=== PATIENT | male | born 1975 | race Caucasian/White ===

== ENCOUNTER 2019-05-16 17:28 | Emergency (ER) | payer MEDICAID ==
[~2019-05-16 17:28] MED LIST: CLON-529 PO; CYCL-1 PO; DOCU-28 PO; IBUP-812 PO; LISI-600 PO; MORP-92; NOR5T PO; VENL150T3 PO
== END 2019-05-16 18:17 | disposition left against medical advice (07) ==
LOC: ER 17:29
DX: M25.559 Pain in unspecified hip (principal); Z53.21 Procedure and treatment not carried out due to patient leaving prior to being seen by health care provider

== ENCOUNTER 2019-05-25 17:19 | Emergency (ER) | payer MEDICAID ==
[~2019-05-25] VITALS: Ht 185.4 cm; Wt 92.7 kg
[2019-05-25 18:50] LABS: BASOPHILS # (AUTO) 0.1 X10'3 (0-0.2); EOSINOPHILS # (AUTO) 0.1 X10'3 (0-0.9); EOSINOPHILS % (AUTO) 1.5 % (0-6); HEMOGLOBIN 16.6 g/dl (14.0-17.9); LYMPHOCYTES # (AUTO) 2.8 X10'3 (1.1-4.8); LYMPHOCYTES % (AUTO) 28.7 % (21-51); MEAN CORPUSCULAR HEMOGLOBIN 30.5 PG (27.0-31.0); MEAN CORPUSCULAR HGB CONC 34.5 g/dL (33.0-36.5); MEAN CORPUSCULAR VOLUME 88.5 FL (78-98); MEAN PLATELET VOLUME 7.3 FL (7.4-10.4); MONOCYTES # (AUTO) 0.8 X10'3 (0-0.9); MONOCYTES % (AUTO) 7.9 % (2-12); NEUTROPHILS # (AUTO) 5.9 X10'3 (1.8-7.7); NEUTROPHILS % (AUTO) 60.9 % (42-75); PLATELET COUNT 269 X10'3 (140-440); RED BLOOD COUNT 5.42 X10'6 (4.70-6.10); WHITE BLOOD COUNT 9.7 X10'3 (4.5-11.0)
[2019-05-25 19:06] LABS: ALANINE AMINOTRANSFERASE 50 U/L (12-78); ALBUMIN 4.2 G/DL (3.4-5.0); ALBUMIN/GLOBULIN RATIO 1.1 (1.1-1.5); ALKALINE PHOSPHATASE 78 IU/L (46-116); ANION GAP 10 (8-16); ASPARTATE AMINO TRANSFERASE 53 U/L (10-37); BILIRUBIN,TOTAL 0.5 MG/DL (0.1-1.0); BLOOD UREA NITROGEN 13 MG/DL (7-18); BUN/CREATININE RATIO 13.1 (5.4-32.0); CHLORIDE 108 MMOL/L (99-107); CREATININE 0.99 MG/DL (0.60-1.10); GLUCOSE 84 MG/DL (70-104); POTASSIUM 4.5 MMOL/L (3.5-5.1); SODIUM 145 MMOL/L (135-145); TOTAL CARBON DIOXIDE 26.7 MMOL/L (24-32); TOTAL PROTEIN 8.1 G/DL (6.4-8.2); eGFR 82 ML/MIN
[2019-05-25 19:16] LABS: ETHANOL 0.185 GM/DL (0.0-0.010)
[2019-05-25 20:10] LABS: URINE AMPHETAMINE SCREEN NEGATIVE (Neg); URINE BARBITUATE SCREEN NEGATIVE (Neg); URINE BENZODIAZEPINES SCREEN NEGATIVE (Neg); URINE CANNABINOID SCREEN POSITIVE (Neg); URINE COCAINE SCREEN NEGATIVE (Neg); URINE METHADONE SCREEN NEGATIVE (Neg); URINE OPIATE SCREEN NEGATIVE (Neg); URINE PHENCYCLIDINE SCREEN NEGATIVE (Neg)
[2019-05-25] MEDS ORDERED: mag hydrox/Alum hydrox/simeth 30ml oral suspension PO ONE (20:55)
[2019-05-25] MEDS ORDERED: ketorolac tromethamine 15mg/ml inj. IM ONE (20:55)
--- NOTE | 2019-05-25 21:05 | NUR ---
pt stated he had pain and had heartburn, PA informed and meds were ordered and given. Covered the patient with 2 warmed blankets and closed the doors, hopefully he can sleep.
--- NOTE | 2019-05-25 22:41 | NUR ---
pt states he is still having pain and despite really trying to sleep he is just not able. Will notify PA
[2019-05-25] MEDS ORDERED: diphenhydrAMINE 25mg capsule PO ONE (23:00)
[2019-05-25] MEDS ORDERED: LORazepam 1 MG tablet PO ONE (23:00)
--- NOTE | 2019-05-26 00:01 | NUR ---
pt transfered from 16 from the ED.
[2019-05-26] MEDS ORDERED: LISI40TA4 (00:11)
[2019-05-26] MEDS ORDERED: FENO134C PO (00:11)
[2019-05-26] MEDS ORDERED: HYDR25TA4 PO (00:11)
[2019-05-26] MEDS ORDERED: SIMV-42 PO (00:11)
[2019-05-26] MEDS ORDERED: FLUT16SP26 (00:11)
[2019-05-26] MEDS ORDERED: AMLO10TA13 PO (00:11)
[2019-05-26] MEDS ORDERED: HYDR-3972 PO (00:11)
[2019-05-26] MEDS ORDERED: MONT10TA26 PO (00:11)
[2019-05-26] MEDS ORDERED: PREG75CA75 PO (00:11)
[2019-05-26] MEDS ORDERED: BUSP5TAB3 PO (00:11)
[2019-05-26] MEDS ORDERED: DOXA2TAB2 PO (00:11)
[2019-05-26] MEDS ORDERED: ibuprofen tablet 400 MG TABLET PO ONE (04:50)
[2019-05-26] MEDS ORDERED: acetaminophen 325mg tablet PO PRN (11:55)
[2019-05-26] MEDS ORDERED: ibuprofen tablet 400 MG TABLET PO PRN (11:55)
[2019-05-26] MEDS ORDERED: HYDROcodone/acetaminophen 10/325mg tab PO PRN (12:25)
--- NOTE | 2019-05-26 12:45 | NUR ---
Katarina [facility] staff member is speaking with the patient to determine disposition.
--- NOTE | 2019-05-26 13:23 | NUR ---
Pt's spouse and Katarina [facility] staff are at the bedside at this time discussing the situation and plan of care.
--- NOTE | 2019-05-26 13:42 | NUR ---
Pt's vitals checked prior to discharge, BP is elevated but not critical level. Pt is due to take his home routine medications upon arrival at home today. Dr. Slade is aware of the BP reading and gave the OK for the patient to go home and take his medications as scheduled and follow up with [facility] as scheduled.
[2019-05-26 13:53] VITALS: BP 173/89
[2019-05-26] MEDS ORDERED: pregabalin 75mg capsule PO SCH (20:00)
[2019-05-26] MEDS ORDERED: busPIRone 5mg tablet PO SCH (20:00)
[2019-05-26] MEDS ORDERED: ibuprofen tablet 400 MG TABLET PO SCH (20:00)
[2019-05-27] MEDS ORDERED: HYDROchlorothiazide 25mg tablet PO SCH (08:00)
[2019-05-27] MEDS ORDERED: montelukast 10mg tablet PO SCH (08:00)
[2019-05-27] MEDS ORDERED: venlafaxine XR 75mg capsule (Q24H) PO SCH (08:00)
[2019-05-27] MEDS ORDERED: doxazosin mesylate 2mg tablet PO SCH (08:00)
[2019-05-27] MEDS ORDERED: lisinopril 20mg tablet PO SCH (08:00)
[2019-05-27] MEDS ORDERED: amLODIPine 5mg tablet PO SCH (08:00)
[2019-05-27] MEDS ORDERED: fenofibrate 145mg tablet PO SCH (08:00)
[2019-05-27] MEDS ORDERED: fluticasone nasal spray 16GM bottle NS SCH (08:00)
[2019-05-27] MEDS ORDERED: atorvastatin 10mg tablet PO SCH (08:00)
== END 2019-05-26 13:55 | disposition home or self-care (01) ==
LOC: ER 17:20
DX: G47.00 Insomnia, unspecified (principal); R44.3 Hallucinations, unspecified; M54.5 Low back pain; M25.552 Pain in left hip; I10 Essential (primary) hypertension; G89.29 Other chronic pain; F12.90 Cannabis use, unspecified, uncomplicated; Z98.890 Other specified postprocedural states; Z56.0 Unemployment, unspecified; Z79.899 Other long term (current) drug therapy
CPT/HCPCS: 36415; 73502; 80053; 80305; 80320; 84443; 85025; 96372; 99285; J1885; Q0163

== ENCOUNTER 2020-05-03 17:09 | Emergency (ER) | payer MEDICAID ==
[~2020-05-03 17:09] MED LIST changes: +AMLO10TA13 PO; +BUSP5TAB3 PO; -CLON-529 PO; -CYCL-1 PO; -DOCU-28 PO; +DOXA2TAB2 PO; +FENO134C PO; +FLUT16SP26; +HYDR-3972 PO; +HYDR25TA4 PO; -LISI-600 PO; +LISI40TA4; +MONT10TA97 PO; -MORP-92; -NOR5T PO; +PREG75CA75 PO; +SIMV-42 PO
== END 2020-05-03 17:48 | disposition left against medical advice (07) ==
LOC: ER 17:09
DX: Z53.21 Procedure and treatment not carried out due to patient leaving prior to being seen by health care provider (principal)

== ENCOUNTER 2020-08-22 19:05 | Emergency (ER) | payer MEDICAID ==
[~2020-08-22] VITALS: Ht 185.4 cm; Wt 90.0 kg
[~2020-08-22 19:05] MED LIST changes: +LISI40TA13; -LISI40TA4; +MONT10TA32 PO; -MONT10TA97 PO
[2020-08-22 19:56] LABS: BASOPHILS # (AUTO) 0.1 X10'3 (0-0.2); BASOPHILS % (AUTO) 1.1 % (0-1); EOSINOPHILS # (AUTO) 0.2 X10'3 (0-0.9); EOSINOPHILS % (AUTO) 2.2 % (0-6); HEMATOCRIT 46.9 % (42.0-52.0); LYMPHOCYTES # (AUTO) 2.5 X10'3 (1.1-4.8); LYMPHOCYTES % (AUTO) 25.5 % (21-51); MEAN CORPUSCULAR HEMOGLOBIN 31.5 PG (27.0-31.0); MEAN CORPUSCULAR HGB CONC 34.2 g/dL (33.0-36.5); MEAN CORPUSCULAR VOLUME 91.9 FL (78-98); MONOCYTES # (AUTO) 0.9 X10'3 (0-0.9); MONOCYTES % (AUTO) 8.9 % (2-12); NEUTROPHILS # (AUTO) 6.2 X10'3 (1.8-7.7); NEUTROPHILS % (AUTO) 62.3 % (42-75); PLATELET COUNT 324 X10'3 (140-440); RED CELL DISTRIBUTION WIDTH 13.4 % (11.5-14.5)
[2020-08-22 20:08] LABS: ALANINE AMINOTRANSFERASE 52 U/L (12-78); ALBUMIN 4.1 G/DL (3.4-5.0); ALBUMIN/GLOBULIN RATIO 0.9 (1.1-1.5); ALKALINE PHOSPHATASE 92 IU/L (46-116); ANION GAP 16 (8-16); ASPARTATE AMINO TRANSFERASE 34 U/L (10-37); BILIRUBIN,TOTAL 0.4 MG/DL (0.1-1.0); BLOOD UREA NITROGEN 13 MG/DL (7-18); CALCIUM 8.7 MG/DL (8.5-10.1); CHLORIDE 107 MMOL/L (99-107); CREATININE 1.08 MG/DL (0.60-1.10); ETHANOL 0.263 GM/DL (0.0-0.010); GLUCOSE 93 MG/DL (70-104); POTASSIUM 3.9 MMOL/L (3.5-5.1); SODIUM 143 MMOL/L (135-145); TOTAL PROTEIN 8.7 G/DL (6.4-8.2); eGFR 74 ML/MIN
--- NOTE | 2020-08-22 20:30 | NUR ---
Patient now wearing green scrubs, resting in stretcher laying on hisside, even and unlabored respirations. No needs voiced at this time.
[2020-08-22 21:07] LABS: URINE AMPHETAMINE SCREEN NEGATIVE (Neg); URINE BARBITUATE SCREEN NEGATIVE (Neg); URINE BENZODIAZEPINES SCREEN NEGATIVE (Neg); URINE CANNABINOID SCREEN POSITIVE (Neg); URINE COCAINE SCREEN NEGATIVE (Neg); URINE METHADONE SCREEN NEGATIVE (Neg); URINE OPIATE SCREEN NEGATIVE (Neg); URINE PHENCYCLIDINE SCREEN NEGATIVE (Neg)
--- NOTE | 2020-08-22 21:30 | NUR ---
Patient resting in stretcher, has been able to readjust position independently. Patient has been calm and cooperative.
--- NOTE | 2020-08-22 22:30 | NUR ---
Patient laying on his side, even and unnlabored respirations. No needs voiced at this time.
--- NOTE | 2020-08-22 23:30 | NUR ---
Waiting on psych evaluation for patient. He has continued to rest, calm and cooperative. No further needs at this time.
[2020-08-23] MEDS ORDERED: ibuprofen tablet 400 MG TABLET PO ONE (01:00)
[2020-08-23] MEDS ORDERED: diphenhydrAMINE 25mg capsule PO ONE (01:20)
[2020-08-23] MEDS ORDERED: LORazepam 1 MG tablet PO ONE (01:20)
--- NOTE | 2020-08-23 07:17 | NUR ---
pt sleeping quietly. no acute distress noted at this time.
--- NOTE | 2020-08-23 07:29 | NUR ---
PACKET SENT TO [facility]
[2020-08-23 07:36] LABS: CLARITY,URINE CLEAR (Clear); COLOR,URINE YELLOW (Yellow); GLUCOSE, URINE NEGATIVE (Neg); KETONES,URINE NEGATIVE (Neg); LEUKOCYTE ESTERASE ,URINE NEGATIVE (Neg); NITRITES, URINE NEGATIVE (Neg); OCCULT BLOOD,URINE TRACE-INTACT (Neg); PROTEIN,URINE NEGATIVE (Neg); UROBILINOGEN,URINE 0.2 E.U/dL (0.2-1.0)
[2020-08-23 07:43] LABS: UA COLLECTION TYPE VOIDED
[2020-08-23 07:44] LABS: BACTERIA,URINE NONE SEEN /HPF (Neg); MUCUS STRANDS FEW /LPF (Neg); RBC,URINE 0-2 /HPF (0-2); SQUAMOUS EPITHELIAL CELL,UR NONE SEEN /LPF (FEW); WBC,URINE NONE SEEN /HPF (0-4)
--- NOTE | 2020-08-23 09:15 | NUR ---
spoke with irasema from mental health. will be putting pt on a 5150.
--- NOTE | 2020-08-23 10:00 | NUR ---
PT CALM, COOPERATIVE WITH CARE.
--- NOTE | 2020-08-23 10:30 | NUR ---
pt c/o right side sciatic pain. informed dr. feng. please see new orders.
[2020-08-23] MEDS ORDERED: dexamethasone 4mg tablet PO ONE (10:35)
[2020-08-23] MEDS ORDERED: ketorolac tromethamine 15mg/ml inj. IM ONE (10:35)
[2020-08-23] MEDS ORDERED: cyclobenzaprine 10mg tablet PO ONE (10:35)
--- NOTE | 2020-08-23 10:45 | NUR ---
reports been given, to estelle sweeney. pt went to room 23
--- NOTE | 2020-08-23 11:12 | NUR ---
Pt report received from Marisabel DAY. Pt ambulated over in stable condition with belongings and paperwork.
[2020-08-23] MEDS ORDERED: amLODIPine 5mg tablet PO ONE (17:35)
--- NOTE | 2020-08-23 19:39 | NUR ---
Assumed patient care. Patient exhibits mild anxiety. He is cooperative.
[2020-08-23] MEDS ORDERED: LORazepam 0.5 MG tablet PO PRN (19:45)
[2020-08-23] MEDS ORDERED: ibuprofen tablet 400 MG TABLET PO PRN (19:55)
--- NOTE | 2020-08-23 20:00 | NUR ---
Patients family called, patients mother (was termally ill,) has . Patient cries, he then tells this financial underwriter it was expected. PRN ativan will be requested.
[2020-08-23] MEDS ORDERED: quetiapine 100mg tablet PO SCH (21:00)
--- NOTE | 2020-08-23 21:13 | NUR ---
Breaking primary RN. Patient walking calmly around his bed, rearranging pillows and linen. No sign of distress or agitation at this time.
--- NOTE | 2020-08-23 21:49 | NUR ---
Plan to admit to Behavioral Health tonight. Patient is being interviewed by BARB Cox.
--- NOTE | 2020-08-23 21:50 | NUR ---
Motrin was given for generalized pain.
--- NOTE | 2020-08-23 23:30 | NUR ---
Yessicat discharged and transfered to adult mental health.
[2020-08-24 00:38] VITALS: BP 172/88
== END 2020-08-24 00:43 ==
LOC: ER 19:06
DX: R45.1 Restlessness and agitation (principal); R45.850 Homicidal ideations; I10 Essential (primary) hypertension; G89.29 Other chronic pain; M54.9 Dorsalgia, unspecified; Z56.0 Unemployment, unspecified; Z20.822 Contact with and (suspected) exposure to COVID-19
CPT/HCPCS: 36415; 80053; 80305; 80320; 81001; 85025; 87081; 87635; 96372; 99285; C9803; J1885; Q0163

== ENCOUNTER 2023-05-04 07:28 | Emergency (ER) | payer MEDICAID ==
[~2023-05-04] VITALS: Ht 185.4 cm; Wt 85.9 kg
[~2023-05-04 07:28] MED LIST changes: -AMLO10TA13 PO; -BUSP5TAB3 PO; -DOXA2TAB2 PO; -FENO134C PO; -FLUT16SP26; -HYDR-3972 PO; -HYDR25TA4 PO; -LISI40TA13; -MONT10TA32 PO; +NICO-668 BC; -PREG75CA75 PO; +QUET100T34 PO; -SIMV-42 PO; +TIZA-189 PO; +TRAZ-251 PO; -VENL150T3 PO
[2023-05-04 08:09] LABS: BASOPHILS # (AUTO) 0.1 X10'3 (0-0.2); BASOPHILS % (AUTO) 1.3 % (0-1); EOSINOPHILS # (AUTO) 0.2 X10'3 (0-0.9); EOSINOPHILS % (AUTO) 2.2 % (0-6); HEMATOCRIT 43.9 % (42.0-52.0); HEMOGLOBIN 14.7 g/dl (14.0-17.9); LYMPHOCYTES # (AUTO) 1.6 X10'3 (1.1-4.8); LYMPHOCYTES % (AUTO) 18.6 % (21-51); MEAN CORPUSCULAR HEMOGLOBIN 30.8 PG (27.0-31.0); MEAN CORPUSCULAR HGB CONC 33.6 g/dL (33.0-36.5); MEAN CORPUSCULAR VOLUME 91.9 FL (78-98); MEAN PLATELET VOLUME 6.4 FL (7.4-10.4); MONOCYTES # (AUTO) 1.1 X10'3 (0-0.9); MONOCYTES % (AUTO) 13.7 % (2-12); NEUTROPHILS # (AUTO) 5.4 X10'3 (1.8-7.7); NEUTROPHILS % (AUTO) 64.2 % (42-75); PLATELET COUNT 271 X10'3 (140-440); RED BLOOD COUNT 4.78 X10'6 (4.70-6.10); RED CELL DISTRIBUTION WIDTH 14.3 % (11.5-14.5); WHITE BLOOD COUNT 8.4 X10'3 (4.5-11.0)
[2023-05-04 08:30] LABS: ALBUMIN 4.1 G/DL (3.4-5.0); ANION GAP 13 (8-16); BLOOD UREA NITROGEN 12 MG/DL (7-18); BUN/CREATININE RATIO 10.8 (10.0-20.0); CALCIUM 9.1 MG/DL (8.5-10.1); CHLORIDE 107 MMOL/L (99-107); CREATININE 1.11 MG/DL (0.60-1.10); ETHANOL 64 MG/DL (<10); GLUCOSE 116 MG/DL (70-104); SODIUM 144 MMOL/L (135-145); THYROID STIMULATING HORMONE 1.24 ulU/ml (0.34-4.50); TOTAL CARBON DIOXIDE 24.3 MMOL/L (24-32); eCRCL 92 ML/MIN; eGFR 71 ML/MIN
[2023-05-04] MEDS ORDERED: LISI5TAB22 PO (08:30)
[2023-05-04] MEDS ORDERED: DIAZ10TA5 PO (08:30)
[2023-05-04 08:35] LABS: POTASSIUM 4.2 MMOL/L (3.5-5.1)
[2023-05-04] MEDS ORDERED: SPIR25TA5 PO (08:35)
[2023-05-04] MEDS ORDERED: FURO40TA4 PO (08:35)
[2023-05-04] MEDS ORDERED: METO-395 PO (08:35)
[2023-05-04] MEDS ORDERED: DAPA5TAB PO (08:35)
[2023-05-04] MEDS ORDERED: PREG75CA76 (08:35)
[2023-05-04] MEDS ORDERED: QUET-1 PO (08:37)
[2023-05-04] MEDS ORDERED: NICO-668 SL (08:37)
[2023-05-04 09:00] VITALS: BP 149/88; PULSE 84; RESP 14; TEMP 98.9; O2SAT 99
[2023-05-04 09:50] LABS: BILIRUBIN,URINE NEGATIVE (Neg); CLARITY,URINE CLEAR (Clear); COLOR,URINE YELLOW (Yellow); GLUCOSE, URINE NEGATIVE (Neg); KETONES,URINE 15 mg/dl (Neg); LEUKOCYTE ESTERASE ,URINE NEGATIVE (Neg); NITRITES, URINE NEGATIVE (Neg); OCCULT BLOOD,URINE NEGATIVE (Neg); PROTEIN,URINE NEGATIVE (Neg); UROBILINOGEN,URINE 0.2 E.U/dL (0.2-1.0)
[2023-05-04 09:56] LABS: UA COLLECTION TYPE NON-SPECIFIED
[2023-05-04 09:58] LABS: URINE AMPHETAMINE SCREEN NEGATIVE (Neg); URINE BARBITUATE SCREEN NEGATIVE (Neg); URINE BENZODIAZEPINES SCREEN POSITIVE (Neg); URINE CANNABINOID SCREEN POSITIVE (Neg); URINE COCAINE SCREEN NEGATIVE (Neg); URINE METHADONE SCREEN NEGATIVE (Neg); URINE OPIATE SCREEN NEGATIVE (Neg); URINE PHENCYCLIDINE SCREEN NEGATIVE (Neg)
== END 2023-05-04 13:20 | disposition home or self-care (01) ==
LOC: ER 07:29
DX: F29 Unspecified psychosis not due to a substance or known physiological condition (principal); Z20.822 Contact with and (suspected) exposure to COVID-19; I10 Essential (primary) hypertension; F12.90 Cannabis use, unspecified, uncomplicated; Z91.018 Allergy to other foods; Z79.899 Other long term (current) drug therapy
CPT/HCPCS: 36415; 80048; 80305; 80320; 81003; 84443; 85025; 87811; 99284; 99285

== ENCOUNTER 2023-06-06 06:41 | Emergency (ER) | payer MEDICAID ==
[~2023-06-06] VITALS: Ht 185.4 cm; Wt 85.0 kg
[~2023-06-06 06:41] MED LIST changes: +DAPA5TAB PO; +DIAZ10TA5 PO; +FURO40TA4 PO; -IBUP-812 PO; +LISI5TAB22 PO; +METO-395 PO; -NICO-668 BC; -QUET100T34 PO; +SPIR25TA5 PO; -TIZA-189 PO; -TRAZ-251 PO
[2023-06-06 06:56] VITALS: BP 152/84; PULSE 92; RESP 16; TEMP 98.1; O2SAT 99
[2023-06-06 07:25] LABS: BASOPHILS # (AUTO) 0.1 X10'3 (0-0.2); BASOPHILS % (AUTO) 1.5 % (0-1); EOSINOPHILS # (AUTO) 0.5 X10'3 (0-0.9); EOSINOPHILS % (AUTO) 5.1 % (0-6); HEMATOCRIT 47.8 % (42.0-52.0); HEMOGLOBIN 16.5 g/dl (14.0-17.9); LYMPHOCYTES # (AUTO) 1.8 X10'3 (1.1-4.8); MEAN CORPUSCULAR HEMOGLOBIN 31.6 PG (27.0-31.0); MEAN CORPUSCULAR HGB CONC 34.5 g/dL (33.0-36.5); MEAN CORPUSCULAR VOLUME 91.6 FL (78-98); MEAN PLATELET VOLUME 7.3 FL (7.4-10.4); MONOCYTES # (AUTO) 0.9 X10'3 (0-0.9); MONOCYTES % (AUTO) 9.8 % (2-12); NEUTROPHILS # (AUTO) 5.9 X10'3 (1.8-7.7); NEUTROPHILS % (AUTO) 63.6 % (42-75); PLATELET COUNT 251 X10'3 (140-440); RED BLOOD COUNT 5.22 X10'6 (4.70-6.10); RED CELL DISTRIBUTION WIDTH 13.5 % (11.5-14.5); WHITE BLOOD COUNT 9.2 X10'3 (4.5-11.0)
[2023-06-06 07:45] LABS: ALBUMIN 4.2 G/DL (3.4-5.0); ANION GAP 18 (8-16); BLOOD UREA NITROGEN 19 MG/DL (7-18); BUN/CREATININE RATIO 13.4 (10.0-20.0); CALCIUM 9.1 MG/DL (8.5-10.1); CHLORIDE 101 MMOL/L (99-107); CREATININE 1.42 MG/DL (0.60-1.10); GLUCOSE 93 MG/DL (70-104); POTASSIUM 3.4 MMOL/L (3.5-5.1); PRO BRAIN NATRIURETIC PEPTIDE 247 PG/ML (0-125); SODIUM 141 MMOL/L (135-145); TOTAL CARBON DIOXIDE 22.1 MMOL/L (24-32); eCRCL 72 ML/MIN; eGFR 53 ML/MIN
== END 2023-06-06 10:15 | disposition left against medical advice (07) ==
LOC: ER 06:42
DX: R06.02 Shortness of breath (principal); R42 Dizziness and giddiness; Z53.21 Procedure and treatment not carried out due to patient leaving prior to being seen by health care provider
CPT/HCPCS: 36415; 71045; 80048; 83880; 84484; 85025; 93005; 99281

== ENCOUNTER 2023-12-05 21:29 | Emergency (ER) | payer MEDICAID ==
[~2023-12-05] VITALS: Ht 185.4 cm; Wt 86.4 kg
[~2023-12-05 21:29] MED LIST changes: +BACI28.42 TOP; +DIME118C3 TP
[2023-12-05 21:31] VITALS: BP 119/65; PULSE 92; RESP 17; TEMP 98.5; O2SAT 97
== END 2023-12-05 22:19 | disposition home or self-care (01) ==
LOC: ER 21:30
DX: S90.812A Abrasion, left foot, initial encounter (principal); S90.811A Abrasion, right foot, initial encounter; F10.129 Alcohol abuse with intoxication, unspecified; I10 Essential (primary) hypertension; F12.90 Cannabis use, unspecified, uncomplicated; Z88.8 Allergy status to other drugs, medicaments and biological substances; Z79.2 Long term (current) use of antibiotics; Z79.899 Other long term (current) drug therapy; W19.XXXA Unspecified fall, initial encounter; Y93.89 Activity, other specified; Y92.89 Other specified places as the place of occurrence of the external cause; Y99.8 Other external cause status; Y90.9 Presence of alcohol in blood, level not specified
CPT/HCPCS: 99281

== ENCOUNTER 2023-12-06 02:17 | Emergency (ER) | payer MEDICAID ==
[~2023-12-06] VITALS: Ht 185.4 cm; Wt 86.4 kg
[2023-12-06 06:14] LABS: BASOPHILS # (AUTO) 0.1 X10'3 (0-0.2); BASOPHILS % (AUTO) 1.1 % (0-1); EOSINOPHILS # (AUTO) 0.2 X10'3 (0-0.9); EOSINOPHILS % (AUTO) 2.2 % (0-6); HEMATOCRIT 41.1 % (42.0-52.0); HEMOGLOBIN 13.9 g/dl (14.0-17.9); LYMPHOCYTES # (AUTO) 1.3 X10'3 (1.1-4.8); LYMPHOCYTES % (AUTO) 14.9 % (21-51); MEAN CORPUSCULAR HEMOGLOBIN 31.2 PG (27.0-31.0); MEAN CORPUSCULAR HGB CONC 33.8 g/dL (33.0-36.5); MEAN CORPUSCULAR VOLUME 92.2 FL (78-98); MEAN PLATELET VOLUME 7.6 FL (7.4-10.4); MONOCYTES # (AUTO) 1.3 X10'3 (0-0.9); MONOCYTES % (AUTO) 14.5 % (2-12); NEUTROPHILS % (AUTO) 67.3 % (42-75); PLATELET COUNT 185 X10'3 (140-440); RED BLOOD COUNT 4.45 X10'6 (4.70-6.10); WHITE BLOOD COUNT 8.8 X10'3 (4.5-11.0)
[2023-12-06 06:21] LABS: ALBUMIN 3.7 G/DL (3.4-5.0); ANION GAP 12 (8-16); BLOOD UREA NITROGEN 18 MG/DL (7-18); BUN/CREATININE RATIO 16.2 (10.0-20.0); CALCIUM 8.8 MG/DL (8.5-10.1); CHLORIDE 107 MMOL/L (99-107); CREATININE 1.11 MG/DL (0.60-1.10); ETHANOL 22 MG/DL (<10); GLUCOSE 64 MG/DL (70-104); POTASSIUM 3.6 MMOL/L (3.5-5.1); SODIUM 141 MMOL/L (135-145); TOTAL CARBON DIOXIDE 21.9 MMOL/L (24-32); eCRCL 91 ML/MIN; eGFR 70 ML/MIN
[2023-12-06 06:24] LABS: APTT 26 SECONDS (22-32); PROTHROMBIN TIME 10.4 SECONDS (9.0-12.0)
[2023-12-06 07:15] LABS: BILIRUBIN,URINE NEGATIVE (Neg); CLARITY,URINE CLEAR (Clear); COLOR,URINE YELLOW (Yellow); GLUCOSE, URINE 100 mg/dl (Neg); KETONES,URINE NEGATIVE (Neg); LEUKOCYTE ESTERASE ,URINE NEGATIVE (Neg); NITRITES, URINE NEGATIVE (Neg); OCCULT BLOOD,URINE NEGATIVE (Neg); PROTEIN,URINE NEGATIVE (Neg); UROBILINOGEN,URINE 0.2 E.U/dL (0.2-1.0)
[2023-12-06 07:21] LABS: UA COLLECTION TYPE VOIDED
[2023-12-06 11:58] VITALS: BP 114/78; PULSE 85; RESP 16; TEMP 97.9; O2SAT 96
== END 2023-12-06 12:00 | disposition home or self-care (01) ==
LOC: ER 02:18
DX: F10.20 Alcohol dependence, uncomplicated (principal); M79.671 Pain in right foot; M79.672 Pain in left foot; I10 Essential (primary) hypertension; G89.29 Other chronic pain; M54.9 Dorsalgia, unspecified; F12.90 Cannabis use, unspecified, uncomplicated; R29.6 Repeated falls; Z88.8 Allergy status to other drugs, medicaments and biological substances; Z79.899 Other long term (current) drug therapy; Z56.0 Unemployment, unspecified; Z72.89 Other problems related to lifestyle; W19.XXXA Unspecified fall, initial encounter
CPT/HCPCS: 36415; 70450; 80048; 80320; 81003; 85025; 85610; 85730; 93005; 99285

== ENCOUNTER 2024-10-26 21:29 | Emergency (ER) | payer MEDICAID ==
[~2024-10-26] VITALS: Ht 185.4 cm; Wt 102.3 kg
[2024-10-26 21:53] VITALS: TEMP 98
--- NOTE | 2024-10-26 21:58 | ELECTROCARDIOGRAPH REPORT ---
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 Reading MD: Measurements Intervals [place] Rate: 109 P: 75 OR: 151 QRS: -20 QRSD: 108 T: 30 QT: 360 QTc: 485 Interpretive Statements Sinus tachycardia Probable left atrial enlargement RSR' in V1 or V2, probably normal variant Inferior infarct, old Probable anterolateral infarct, old Please click the below link to view image of tracing.
[2024-10-26 22:10] LABS: MEAN PLATELET VOLUME 7.7 FL (7.4-10.4); RED CELL DISTRIBUTION WIDTH 15.0 % (11.5-14.5)
[2024-10-26 22:28] LABS: CREATININE 1.77 MG/DL (0.60-1.10); PRO BRAIN NATRIURETIC PEPTIDE 10669 PG/ML (0-125); TOTAL CARBON DIOXIDE 24.4 MMOL/L (24-32); eGFR 41 ML/MIN
--- NOTE | 2024-10-26 22:35 | RADIOLOGY REPORT ---
CHEST RADIOGRAPH Indication: CP Technique: Single frontal view of the chest was obtained COMPARISON: DI CHEST,SINGLE VIEW on DOS: 06/06/23 FINDINGS: Lines and Tubes: None Lungs: Moderate diffuse increased prominence of the pulmonary vasculature. No evidence of focal cons olidation. Pleura: No effusion. No pneumothorax. Cardiomediastinal contours: Cardiomegaly. Bones: Unremarkable IMPRESSION: 1. Cardiomegaly and moderate diffuse increased prominence of the pulmonary vasculature.
--- NOTE | 2024-10-26 23:40 | Physician Documentation ---
History of Present Illness ~ Chief Complaint: Shortness of Breath Stated Complaint: RETAINING WATER, SOB Time Seen by MD: 23:18 Primary Medical Doctor: YASMEEN Source: patient Mode of Arrival: POV Exam Limitations: no limitations HPI Chief Complaint: Shortness a breath, leg swelling Caveat: None Independent Historians: None History of Present Illness: Patient is a 49-year-old man with a history of heart attack and congestive heart failure with an ejection fraction at 30%. Patient complains of shortness a breath and lower extremity swelling that began two days ago. Patient has had some mild dyspnea on exertion and shortness a breath that is worse with lying flat. Patient also states that a coughs when he lays flat but cough is nonproductive. No fever. Patient has had some nausea and vomiting today but he believes that was secondary to eating some bad so she. Patient denies any chest pain. Patient denies any other associated symptoms at this time. Review of systems: All systems were reviewed and are negative except for what is indicated in the history of present illness. Past Medical History: Congestive heart failure, COVID Past Surgical History: Orthopedic lumbar spine surgery Social History: No tobacco use, no alcohol use, no drug use Medications: Reviewed as documented Nursing Notes Allergies: Reviewed as documented in Nursing Notes Medication Reconciliation Allergies: Coded Allergies: zolpidem (Verified Allergy, Intermediate, PSYCHOTIC SYMPTOMS, 10/26/24) pork derived (porcine) (Verified Allergy, Unknown, 10/26/24) Scheduled Bacitracin (Bacitracin), 1 APPLIC TOP Q12H Dapagliflozin Propanediol (Farxiga), 1 TAB PO QAM, (Reported) Diazepam (Diazepam), 1 TAB PO HS, (Reported) Dimethicone (Remedy Skin Repair), 1 APPLIC TP BID Furosemide (Furosemide), 1 TAB PO Q48H, (Reported) Lisinopril (Lisinopril), 1 TAB PO BID, (Reported) Metoprolol Succinate (Metoprolol Succinate), 1 TAB PO DAILY, (Reported) Spironolactone (Spironolactone), 1 TAB PO DAILY, (Reported) Past Medical History Past Medical History: Hypertension, Chronic Pain, Chronic Back Pain Past Surgical History: noncontributory, orthopedic surgeries Alcohol Use: Occasionally Drug Use: marijuana Lives with: Spouse Lives In: Home Occupation: unemployed Review of Systems All Other Systems at this time: Reviewed and Negative ROS Patient denies any other acute symptoms other than above. All other systems are negative Physical Exam Vital Signs: RN Vital Signs have been reviewed: Yes, Temperature: 98.0, Source: Temporal, Heart Rate: 106, Respiratory Rate: 20, BP: 134/90, Pulse Oximetry: 96 Pulse Oximetry Reflects: adequate oxygenation Physical Exam General Appearance: No distress HEENT: Normal OP, moist oral mucosa, PERRL, EOMI Neck: supple, normal ROM, trachea midline Pulmonary: No respiratory distress, CTA, BS equal Cardiac: RRR, no murmur, rub or gallop, GI: nondistended, soft, nontender, normal bowel sounds, no guarding, no rebound Extremities: normal ROM, 2+ pitting bilateral lower extremity edema Skin: intact, diaphoretic, warm, no rashes Neuro: AAOx3, speech is clear, no focal motor weakness Psych: normal affect, good eye contact, no apparent hallucination, normal speech Progress Results/Orders Results/Orders Orders - TIANA MORALES MD Chest,Single View (10/26/24 22:18) Monitor (10/26/24 21:57) Saline Lock (10/26/24 21:57) Oxygen (10/26/24 21:57) Hs Troponin I W Calculations (10/27/24 00:57) Completed Orders - TIANA MORALES MD Chest,Single View (10/26/24 22:18) Cbc/Diff (10/26/24 21:57) BMP (10/26/24 21:57) PBNP (10/26/24 21:57) Electrocardiogram (10/26/24 21:57) Hs Troponin I W Calculations (10/26/24 21:57) Hs Troponin I W Calculations (10/26/24 23:57) Furosemide Inj (Lasix Inj) (10/27/24 00:00) Potassium Cl Sr Tablet (K-Dur Tablet) (10/27/24 00:00) Medications Received in ER Medications (Trade) Dose Ordered Sig/Moni Route PRN Reason Start Time Stop Time Status Last Admin Dose Admin (Lasix inj) 40 mg ONCE ONCE IV 10/27/24 00:00 10/27/24 00:01 DC 10/27/24 00:02 40 MG (K-DUR tablet) 20 meq ONCE ONCE PO 10/27/24 00:00 10/27/24 00:14 DC 10/27/24 00:17 20 MEQ Vital Signs 10/26/24 10/26/24 10/26/24 10/26/24 21:53 22:41 22:41 23:34 Temp 98.0 Pulse 110 106 106 Resp 21 20 20 20 B/P (MAP) 142/96 140/91 (107) 134/90 (105) Pulse Ox 99 99 96 10/27/24 00:48 Pulse 101 Resp 20 B/P (MAP) 138/80 (99) Pulse Ox 99 Laboratory Tests Test 10/26/24 21:48 10/26/24 23:51 10/27/24 00:55 White Blood Count 10.8 Red Blood Count 4.76 Hemoglobin 14.5 Hematocrit 42.7 Mean Corpuscular Volume 89.9 Mean Corpuscular Hemoglobin 30.4 Mean Corpuscular Hemoglobin Concent 33.9 Red Cell Distribution Width 15.0 H Platelet Count 245 Mean Platelet Volume 7.7 Neutrophils (%) (Auto) 60.2 Lymphocytes (%) (Auto) 20.9 L Monocytes (%) (Auto) 16.0 H Eosinophils (%) (Auto) 1.8 Basophils (%) (Auto) 1.1 H Neutrophils # (Auto) 6.5 Lymphocytes # (Auto) 2.3 Monocytes # (Auto) 1.7 H Eosinophils # (Auto) 0.2 Basophils # (Auto) 0.1 CBC Comment Sodium Level 138 Potassium Level 4.1 Chloride Level 103 Carbon Dioxide Level 24.4 Anion Gap 11 Blood Urea Nitrogen 21 H Creatinine 1.77 H Estimated GFR/1.73 m2 41 BUN/Creatinine Ratio 11.9 Glucose Level 129 H Calcium Level 8.8 Troponin I High Sensitivity 74 77 *H Pro-B-Type Natriuretic Peptide 03396 H Albumin 3.3 L Chemistry Comments Troponin I High Sens Percent Delta 4 Troponin I Hi Sens Absolute Change 3 Medical Decision Making Findings Differential diagnosis includes but is not limited to: Pleural effusion, pneumonia, congestive heart failure, acute coronary syndrome EKG independent interpretation: Performed at 9:37 p.m.. Sinus tachycardia, heart rate 109, left atrial enlargement, inferior Q-waves Chest x-ray, single view, indication: Shortness a breath Independent interpretation: Pulmonary vascular congestion, otherwise normal mediastinum, cardiomegaly. Laboratory data independent interpretation: CBC: Unremarkable CMP: Troponin: 74 Pro BNP: 01842 Emergency department course/medical decision-making: Patient presents with history and physical that is concerning for acute congestive heart failure. Chest x-ray compared to May of 2023 shows new c ardiomegaly and pulmonary vascular congestion. Patient will be given Lasix 40 mg IV. Patient is wanting to be discharged so that he can go back to work. Would recommend admission for repeat cardiac echo. Patient isn't requiring oxygen. 11:59 p.m.: Patient re-evaluated. Patient is refusing admission. He says he is going to follow up with his primary care doctor and Dr. Goff as an outpatient. I recommended he stay to get the workup he needs rather than trying to get it done as an outpatient. Patient will be given Lasix 40 mg IV and potassium 20 mEq p.o.. Patient understands the risks. 1:15 a.m.: Patient re-evaluated. Patient was given Lasix and has been diuresing. Patient is still refuses admission. Patient will be discharged AMA. Departure Time of Disposition: 23:59 Disposition: 07 LEFT AGAINST MEDICAL ADVICE Impression: Primary Impression: Acute congestive heart failure Qualified Codes: I50.9 - Heart failure, unspecified Condition: Guarded Discharge Instructions: Heart Failure Eating Plan, Heart Failure Exacerbation Additional Instructions: YOU UNDERSTAND I AM RECOMMENDING ADMISSION FOR TREATMENT OF YOUR HEART FAILURE. 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 RETURN TO THE ER IF YOUR SYMPTOMS WORSEN. Referrals: ANDRAE GOFF MD Education Educated: Patient Educated regarding: diagnosis, treatment Signature Scribe Signature: No scribe Attestation: No scribe TIANA MORALES MD Oct 26, 2024 23:40
[2024-10-27] MEDS: furosemide 10 MG/1 ML 10ml inj IV ONE (00:02)
[2024-10-27] MEDS: potassium Cl 20 mEq SR tablet PO ONE (00:17)
[2024-10-27 00:48] VITALS: BP 138/80; PULSE 101; RESP 20; O2SAT 99
== END 2024-10-27 01:23 | disposition left against medical advice (07) ==
LOC: ER 21:29
DX: I11.0 Hypertensive heart disease with heart failure (principal); I50.9 Heart failure, unspecified; I25.2 Old myocardial infarction; F12.90 Cannabis use, unspecified, uncomplicated; Z88.8 Allergy status to other drugs, medicaments and biological substances
CPT/HCPCS: 36415; 71045; 80048; 83880; 84484; 85025; 93005; 96374; 99285; J1938

== ENCOUNTER 2025-01-27 12:31 | Inpatient (IN) | payer MEDICAID ==
[~2025-01-27] VITALS: Ht 185.4 cm; Wt 93.7 kg
--- NOTE | 2025-01-27 12:57 | ELECTROCARDIOGRAPH REPORT ---
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 PASCALE Clarke Measurements Intervals [place] Rate: 95 P: 68 [place]: 159 QRS: -35 QRSD: 118 T: 110 QT: 401 QTc: 504 Interpretive Statements Sinus rhythm Left atrial enlargement Nonspecific intraventricular conduction delay Inferior infarct, old Consider anterior infarct Lateral leads are also involved Electronically Signed On 01-30-2025 19:22:[address] PASCALE Clarke Please click the below link to view image of tracing.
[2025-01-27 13:25] LABS: MEAN PLATELET VOLUME 8.1 FL (7.4-10.4); RED CELL DISTRIBUTION WIDTH 14.9 % (11.5-14.5)
[2025-01-27 13:46] LABS: CREATININE 1.90 MG/DL (0.60-1.10); PRO BRAIN NATRIURETIC PEPTIDE 4473 PG/ML (0-125); TOTAL CARBON DIOXIDE 26.6 MMOL/L (24-32); eCRCL 53 ML/MIN; eGFR 38 ML/MIN
--- NOTE | 2025-01-27 13:46 | RADIOLOGY REPORT ---
DI CHEST,SINGLE VIEW, HISTORY: CP COMPARISON: DI CHEST,SINGLE VIEW on DOS: 10/26/24, DI CHEST,SINGLE VIEW on DOS: 06/06/23 DI CHEST,SINGLE VIEW on DOS: 10/26/24, DI CHEST,SINGLE VIEW on DOS: 06/06/23 TECHNICAL DATA: 1 view of the chest was obtained. FINDINGS: Lines and tubes: None Cardiomediastinal silhouette: Enlarged Pulmonary vasculature: normal Lung expansion: normal Lung airspace: normal Lung interstitium: normal Pleura: normal Pneumothorax: no Bones: Unremarkable Other: no IMPRESSION: No acute intrathoracic abnormality.
--- NOTE | 2025-01-27 15:17 | Physician Documentation ---
Addendum CHIEF COMPLAINT/HPI: The patient is a 49-year-old male with a history of CHF and reduced ejection fraction (approximately 30%) around the time of COVID though he does admit to some alcohol and methamphetamine use. For the past three days he has had lower extremity swelling and worsening dyspnea on exertion. He has doubled up his 40 mg daily dose of Lasix to twice daily (80 mg daily) for the past two days without improvement. REVIEW OF SYSTEMS: Constitutional: Fatigue and dyspnea on exertion. HEENT: Denies hearing loss, sinus pressure or visual changes. Respiratory: Shortness of breath. Cardiovascular: Pedal edema, some dizziness when looking down. Gastrointestinal: Denies abdominal pain, blood in stool, constipation, diarrhea, heartburn, loss of appetite, nausea or vomiting. Genitourinary: Denies painful urination (dysuria), excessive amount of urine (polyuria) or urinary frequency. Metabolic/Endocrine: Denies cold intolerance, heat intolerance, excessive thirst (polydipsia) or excessive hunger (polyphagia). Neurological: Some dizziness when looking down. Psychiatric: Denies anxiety or depression. Integumentary: Denies breast discharge, breast lump, hives, mole change(s), rash or skin lesion. Musculoskeletal: Denies back pain, joint pain, joint swelling or neck pain. Hematologic: Denies easily bleeding, easily bruises, lymphedema or issues with blood clots. Immunologic: Denies food allergies or seasonal allergies. PHYSICAL EXAMINATION: Vitals and nursing note reviewed. Constitutional: General: Patient is awake, alert, oriented x 4 in no acute distress and well appearing. Speech is clear and lucid. Appearance: Normal appearance. Patient is not ill-appearing, toxic-appearing or diaphoretic. HENT: Head: Normocephalic and atraumatic. Mouth: Mucous membranes are moist. Pharynx: Oropharynx is clear. Eyes: General: No scleral icterus. Extraocular Movements: Extraocular movements intact. Pupils: Pupils are equal, round, and reactive to light. Neck: Supple, no Kernig or Brudzinski sign. Cardiovascular: Rate and Rhythm: Normal rate and regular rhythm. Heart sounds: No murmur heard. Pulmonary: Effort: No respiratory distress. Breath sounds: No wheezing, rhonchi or rales. Abdominal: General: There is no distension. Palpations: There is no fluid wave, hepatomegaly or mass. Tenderness: There is no abdominal tenderness. There is no guarding. Musculoskeletal: General: No swelling or deformity. Skin: Coloration: Skin is not jaundiced. Findings: No erythema or rash. Neurological: Mental Status: Patient is alert. EKG medically necessary in the evaluation of dyspnea and interpreted by me at the time of patient evaluation. Rhythm is sinus rhythm with a rate of 95, atrial enlargement, nonspecific intraventricular conduction delay, old inferior infarct Impression: Abnormal EKG. CHEST X-RAY FINDINGS: X-rays were interpreted by me. The lungs are clear. The cardiac and mediastinal contours are within normal limits. There is no evidence of pulmonary vascular congestion, pleural effusions or pneumothorax. The bony thorax appears grossly intact. IMPRESSION: Normal radiographic examination of the chest with no acute cardiopulmonary abnormality. MEDICAL DECISION MAKING: This 49-year-old male with a history of CHF and reduced ejection fraction presents with worsening pedal edema and dyspnea on exertion, despite increasing his Lasix. He also has worsening renal function with a creatinine of 1.9. He will benefit from admission and diuresis. Departure Disposition: 09 ADMITTED INPATIENT Admitted to Inpatient Unit: to hospitalist Admission Level of Care: Med/Surg with Tele Impression: Primary Impression: Acute on chronic combined systolic and diastolic CHF (congestive heart failure) Condition: Stable BRY HERNANDEZ MD Jan 27, 2025 15:17
[2025-01-27] MEDS ORDERED: furosemide 10 MG/1 ML 10ml inj IV ONE (16:25)
[2025-01-27] MEDS ORDERED: magnesium sulf-water 4G/100mL 100 ML IV PRN (17:05)
[2025-01-27] MEDS ORDERED: ondansetron/PF 4mg/2ml inj IV PRN (17:05)
[2025-01-27] MEDS ORDERED: magnesium hydroxide 30ml (MOM) UD suspension PO PRN (17:05)
[2025-01-27] MEDS ORDERED: magnesium sulf-water 2g/50mL 50 ML IV PRN (17:05)
[2025-01-27] MEDS ORDERED: magnesium Cl slow-release 64mg tablet PO PRN (17:05)
[2025-01-27] MEDS ORDERED: potassium Cl 20 mEq SR tablet PO PRN ×2 (17:05)
[2025-01-27] MEDS ORDERED: potassium Cl 40MEQ/1/2NS 520ml 520 ML IV PRN (17:05)
[2025-01-27] MEDS ORDERED: mag hydrox/Alum hydrox/simeth 30ml oral suspension PO PRN (17:05)
[2025-01-27] MEDS ORDERED: HYDROcodone/acetaminophen 5mg/325mg tablet PO PRN (17:05)
[2025-01-27] MEDS ORDERED: diazepam inj 5 MG/ML inj. IV PRN (17:30)
[2025-01-27] MEDS: PERFLUTREN PROTEIN-A MICROSPHR (Optison) 0.22 MG/ML 3ML VIAL IV ONE (17:36)
--- NOTE | 2025-01-27 17:40 | HISTORY AND PHYSICAL-Residence ---
History & Physical Providers to CC Resident Creating Document: ALICJAARIADNA, RES ~ History of Present Illness Primary Medical Doctor: YASMEEN Reason for Admit\Complaint: Shortness of breath History of Present Illness 49-year-old male with history of HFrEF, hypertension, chronic pain syndrome, anxiety and Nam's palsy presented to the ED with complaints of swelling of legs and shortness of breath. He is on GDMT and Lasix 40 mg at home for HFrEF. He states that he ran out of medications 3 days ago and did not take Lasix, which is when swelling of legs started to worsen. He endorses orthopnea and PND. He states that he can not lie down flat due to dyspnea. He has mild chronic cough at night which is nonproductive. He states that he has been feeling pressure in chest lately. He gets short of breath doing daily activities at home and can only walk 1 mile now. He reports having intermittent palpitations and has dizziness. He denies falls, fever, chills, weight gain, nausea, vomiting, abdominal distension, abdominal pain, burning micturition, headache, confusion. He lives alone at home He can ambulate independently His PCP is Dr. 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, but states that he is [place] Allergies: Coded Allergies: zolpidem (Verified Allergy, Intermediate, PSYCHOTIC SYMPTOMS, 01/27/25) pork derived (porcine) (Verified Allergy, Unknown, 01/27/25) Home Medications Home Medications Active Reported Furosemide 40 Mg Tablet 1 Tab PO Q48H Farxiga (Dapagliflozin Propanediol) 5 Mg Tablet 1 Tab PO QAM Spironolactone 25 Mg Tablet 1 Tab PO DAILY Metoprolol Succinate 25 Mg Tab.sr.24h 1 Tab PO DAILY Lisinopril 5 Mg Tablet 1 Tab PO BID Diazepam 10 Mg Tablet 1 Tab PO HS Past Medical History Past Medical History HFrEF Hypertension Anxiety Chronic pain syndrome Left-sided Nam's palsy at 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 Gastrointestinal: No Abdominal pain, vomiting,nausea,constipation,diarrhea. Normal appetite. No hematemesis or melena. Musculoskeletal: Reports Swelling in bilateral lower legs, No pain in lower extremities Integumentary: No change in skin, hair, nails. No swelling, bruising, abrasions Neurologic: No weakness,No headache, neck pain, numbness or tingling of the extremities, Psychiatric: No delusions, depression, loss of interest in normal activity or change in sleep pattern, hallucinations, suicidal ideations Endocrine: Reports fatigue, No polydipsia, polyuria, change in appetite, heat or cold intolerance, sweating, dry skin Hematological: No bleeding, petechiae, bruising Allergies: No asthma or urticaria Exam Vitals: Vital Signs Date Time Temp Pulse Resp B/P (MAP) Pulse Ox O2 Delivery O2 Flow Rate FiO2 01/27/25 17:05 89 15 107/52 (70) 99 01/27/25 12:36 97.9 0 General: Awake , alert, and oriented x4, resting comfortably in the bed, in no acute distress HEENT: Atraumatic, normocephalic, EOMI, anicteric sclera ; pink conjunctiva, moist mucous membranes Neck: Trachea midline. Supple, full range of motion, no JVD Cardiac: Regular rhythm, regular rate, grade 3 holosystolic murmur in mitral area Respiratory: Equal breath sounds bilaterally, no tachypnea, no wheezing ,rub or rales, Chest wall is symmetric and without deformity. Gastrointestinal: Abdomen symmetric, non-distended, soft, non-tender, normal bowel sounds x4 quadrant, normoactive, no hepatosplenomegaly Musculoskeletal: Bilateral pitting pedal edema 2+, no cyanosis Neurological: Speech is clear, alert, and oriented x 4. No motor or sensory deficit, deep tendon reflexes normal, cerebellar intact. Cranial nerves II-XII intact. Mild drooping of left eyelid present, diminished left-sided wrinkles and unable to completely raise left eyebrow due to residual effects of Nam's palsy at age 12 Skin: Warm and dry Diagnostic Data Last Recorded Lab Results: 01/27/25 1308 01/27/25 1308 Advance Care Planning Advanced Care plannin - 30 Minutes (Full code) Additional Plan Acute on chronic CHF exacerbation, unknown ejection fraction AHA/ACC class C, NYHA III Patient is on GDMT and lasix 40 mg at home He ran out of medications 3 days ago BNP is elevated- 4473 Chest X ray shows cardiomegaly Vitals are stable EKG shows sinus rhythm, rate 95, QTC 504, no ST elevation Troponins are normal Plan: Follow up echo Continue GDMT, lisinopril 5 mg BID, metoprolol succinate 25 mg, spironolactone 25 mg, Jardiance 10 mg Started IV lasix 40 mg BID Strict I's and O's Daily weights ARTURO, most likely prerenal due to renal tubular stasis Creatinine is elevated- 1.9, baseline creatinine is 1.4-1.5 BUN is elevated 34 BUN/Cr is normal Patient is currently on IV Lasix 40 mg b.i.d. for diuresis, can not give fluids Follow up urine lytes Monitor BMP Methamphetamine abuse Alcohol abuse Follow up urine tox screen and ethyl alcohol level Alcohol withdrawal protocol in place construction services technician and substance abuse navigator consulted Chronic back pain Acetaminophen/ [place] 5 mg/10 mg p.r.n. History of Nam's palsy Mild drooping of left eyelid present, diminished left-sided wrinkles and unable to completely raise left eyebrow due to residual effects of Nam's palsy at age 12 I spent a total of 18 minutes reviewing various resuscitative measures/ACP with the patient. The patient decided to be full code. Code status: Full code DVT prophylaxis: Heparin Sub Q Pain management: Acetaminophen/ [place] 5 mg/10 mg p.r.n. Diet/nutrition: Heart healthy diet Prognosis: Guarded Disposition: Continue IV lasix 40 mg BID, Strict I's and O's, PT eval and DC plan Resident attestation: The patient note has been reviewed and supervised by senior residents PGY-2/ PGY-3. Patient was seen, examined and discussed with attending physician, Dr. Jamey Duggan MD Internal Medicine resident, PGY-1 Date of Service: Jan 27, 2025 Billing Provider: NARA CURRY MD, PREETHI, RES Jan 27, 2025 17:40
[2025-01-27 18:33] LABS: APTT 25 SECONDS (22-32); INR 1.2 INR
[2025-01-27 18:37] LABS: CREATININE 1.98 MG/DL (0.60-1.10); PHOSPHORUS 5.0 MG/DL (2.3-4.5); TOTAL CARBON DIOXIDE 22.8 MMOL/L (24-32); eCRCL 50 ML/MIN; eGFR 36 ML/MIN
[2025-01-27 18:40] LABS: LEUKOCYTE ESTERASE ,URINE NEGATIVE (Neg); NITRITES, URINE NEGATIVE (Neg); OCCULT BLOOD,URINE NEGATIVE (Neg)
[2025-01-27 18:48] LABS: SQUAMOUS EPITHELIAL CELL,UR NONE SEEN /LPF (FEW); UA COLLECTION TYPE CLN CATCH MIDSTREAM
[2025-01-27 19:11] LABS: OSMOLALITY UA 378.0 MOSM/K (50-1400)
[2025-01-27 19:13] LABS: CREATININE,URINE RANDOM 57.0 MG/DL
[2025-01-27 19:19] LABS: ETHANOL < 10 MG/DL (<10)
[2025-01-27 19:19] LABS: URINE AMPHETAMINE SCREEN POSITIVE (Neg); URINE BARBITUATE SCREEN NEGATIVE (Neg); URINE BENZODIAZEPINES SCREEN NEGATIVE (Neg); URINE CANNABINOID SCREEN POSITIVE (Neg); URINE COCAINE SCREEN NEGATIVE (Neg); URINE METHADONE SCREEN NEGATIVE (Neg); URINE OPIATE SCREEN NEGATIVE (Neg); URINE PHENCYCLIDINE SCREEN NEGATIVE (Neg)
[2025-01-27] MEDS: docusate sod 100mg capsule PO SCH (20:00)
[2025-01-27] MEDS: K and/or MAG REPLACEMENT MC SCH (20:00)
[2025-01-27] MEDS: heparin, porcine 5000 units/ml vial SQ SCH (21:40)
[2025-01-27 22:40] VITALS: BP 98/67; PULSE 88; RESP 16; TEMP 98.5; O2SAT 98
[2025-01-27] MEDS: thiamine 100mg/ml 2ml inj. IV SCH (23:37)
[2025-01-28] VITALS (8 sets, daily range): BP systolic 84–111; BP diastolic 55–80; PULSE 71–97; RESP 11–20; TEMP 97.2–98.2; O2SAT 93–100
[2025-01-28 06:45] LABS: MEAN PLATELET VOLUME 8.2 FL (7.4-10.4); RED CELL DISTRIBUTION WIDTH 15.2 % (11.5-14.5)
[2025-01-28 07:18] LABS: CHOL/HDL RATIO 6.8 (0.00-4.99); CREATININE 2.00 MG/DL (0.60-1.10); LDL CHOLESTEROL 87 MG/DL (50-100); TOTAL CARBON DIOXIDE 24.0 MMOL/L (24-32); eCRCL 50 ML/MIN; eGFR 36 ML/MIN
[2025-01-28] MEDS: folic acid 1mg/0.2ml inj IV SCH (08:53)
[2025-01-28] MEDS: multivitamins, therapeutics tablet PO SCH (08:54)
[2025-01-28] MEDS: EMPAGLIFLOZIN 10 MG TABLET PO SCH (08:54)
--- NOTE | 2025-01-28 11:52 | PROGRESS NOTE- Residence ---
Progress Note - Resident Providers to CC Resident Creating Document: ARIADNA HELM RES ~ Antibiotic Timeout Antibiotic Ordered?: No Subjective Patient was seen and examined bedside. He is comfortably resting on the bed. He denies new overnight symptoms. He had no PND last night still complains of orthopnea. He states that he has good urine output. Objective Vital Signs Date Time Temp Pulse Resp B/P (MAP) Pulse Ox O2 Delivery O2 Flow Rate FiO2 01/28/25 08:56 84 01/28/25 08:52 108/73 (85) 01/28/25 06:30 98.1 11 96 Room Air 01/27/25 22:40 0.0 Result Diagram: 01/28/25 0558 01/28/25 0558 Awake , alert, and oriented x4, resting comfortably in the bed, in no acute distress HEENT: Atraumatic, normocephalic, EOMI, anicteric sclera ; pink conjunctiva, moist mucous membranes Neck: Trachea midline. Supple, full range of motion, no JVD Cardiac: Regular rhythm, regular rate, grade 3 holosystolic murmur in mitral area Respiratory: Equal breath sounds bilaterally, no tachypnea, no wheezing ,rub or rales, Chest wall is symmetric and without deformity. Gastrointestinal: Abdomen symmetric, non-distended, soft, non-tender, normal bowel sounds x4 quadrant, normoactive, no hepatosplenomegaly Musculoskeletal: Bilateral pitting pedal edema 2+, no cyanosis Neurological: Speech is clear, alert, and oriented x 4. No motor or sensory deficit, deep tendon reflexes normal, cerebellar intact. Cranial nerves II-XII intact, Mild drooping of left eyelid present, diminished left-sided wrinkles and unable to completely raise left eyebrow due to residual effects of Nam's palsy at age 12 Skin: Warm and dry Coagulation Studies Laboratory Tests Test 01/27/25 18:10 Prothrombin Time 12.5 SECONDS (9.0-12.0) H INR International Normalized Ratio 1.2 INR Activated Partial Thromboplast Time 25 SECONDS (22-32) Coagulation Comments Assessment Assessment 49-year-old male with history of HFrEF, hypertension, chronic back pain, Nam's palsy, anxiety admitted for management of acute on chronic CHF exacerbation. 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 Blood pressure is on the soft side, held lisinopril 5 mg BID Decreased IV lasix 40 mg BID to 40 mg once daily Follow up echo Continue GDMT - metoprolol succinate 25 mg, spironolactone 25 mg, Jardiance 10 mg ( held lisinopril) Monitor I's and O's Daily weights ARTURO on CKD stage III, most likely prerenal due to renal tubular stasis Creatinine was elevated- 1.9 on admission, baseline creatinine is 1.4-1.5 Creatinine has uptrended to 2 today, held lisinopril in view of low eGFR-36 BUN is 33 BUN/Cr is normal Reduced IV Lasix 40 mg BID to once daily, can not give fluids currently Fena 1.6% which is indeterminate Monitor BMP Methamphetamine abuse Alcohol abuse Urine tox positive for amphetamines and cannabinoids Ethyl alcohol <10, liver function tests are mildly elevated probably due to alcoholic hepatitis, follow up Hepatitis B and C serology Alcohol withdrawal protocol in place vp marketing services and skin and substance abuse navigator consulted Dyslipipdemia Triglycerides are high-148 ASCVD score 2.1% Follow up outpatient Encourage consumption of fish oil at discharge Chronic back pain Acetaminophen/ [place] 5 mg/10 mg p.r.n. Code status: Full code DVT prophylaxis: Heparin Sub Q Pain management: Acetaminophen/ [place] 5 mg/10 mg p.r.n. Diet/nutrition: Heart healthy diet Prognosis: Guarded Disposition: Continue IV lasix 40 mg once daily, Strict I's and O's, PT eval and DC plan Resident attestation: The patient note has been reviewed and supervised by senior residents PGY-2/ PGY-3. Patient was seen, examined and discussed with attending physician, Dr. Jamey Helm MD Internal Medicine resident, PGY-1 Date of Service: Jan 28, 2025 Billing Provider: NARA CURRY MD, PREETHI, RES Jan 28, 2025 11:52
[2025-01-28] MEDS ORDERED: OMEGA-3/DHA/EPA/FISH OIL 1 EACH CAPSULE.DR PO SCH (12:35)
[2025-01-28] MEDS: nicotine 14mg patch - 24hr TD SCH (12:59)
[2025-01-28] MEDS: metoprolol succinate 25mg (24-HOUR) SR. Tablet PO SCH (13:19)
--- NOTE | 2025-01-28 17:37 | CARDIOLOGY REPORT ---
APPROVED REPORT EXAM: Comprehensive 2D, Doppler, and color-flow Echocardiogram. Patient Location: 602 Heart Rate: 83 bpm Rhythm: NSR Indications CONGESTIVE HEART FAILURE HTN SHORTNESS OF BREATH METHAMPHETAMINE USER BINDER STRIPPER MACHINE: None. BINDER STRIPPER MACHINE: None. 2D Dimensions RVDd 4.2 cm IVSd 1.2 (0.7-1.1cm) LVDd 7.4 cm PWd 1.2 (0.7-1.1cm) IVSs 1.2 (0.8-1.2cm) LVDs 6.4 (2.5-4.0cm) PWs 1.6 (0.8-1.2cm) LVOT Diameter 2.02 (1.8-2.4cm) LVEF(%) 26.8 (>50%) FS (%) 12.9 % SV 76.7 ml CO 6.6 L/min M-Mode Dimensions Left Atrium(MM) 5.64 (2.5-4.0cm) Aortic Root 3.71 (2.2-3.7cm) Aortic Cusp Exc 1.77 (1.5-2.0cm) Aortic Valve AoV Peak Israel. 173.3 cm/s AoV VTI 25.3 cm AO Peak GR. 12.0 mmHg AO Mean GR. 7 mmHg LVOT VTI 16.19 cm LVOT Peak Israel. 95.1 cm/s REGGIE(VTI)/BSA 2.04 cm2/m2 REGGIE (VTI) 2.04 cm2 AI P 1/2 Time 436 ms AV DI 0.64 % Mitral Valve MV E Velocity 152.2 cm/s MV Peak Gr. 14 mmHg MV PHT 72 ms MVA (PHT) 3.06 cm2 MR VMax 425.8 cm/s MV VMax 189.9 cm/s MR PG Max 72.5 mmHg Pulmonary Valve PAEDP 11.90 mmHg Tricuspid Valve TR P. Velocity 236 cm/s RAP ESTIMATE 20 mmHg TR Peak Gr. 22 mmHg RVSP 42 mmHg LEFT VENTRICLE Severe LV dilitation with mild concentric hypertrophy. Severely reduced LV systolic function. LVEF is 25-30%. RIGHT VENTRICLE Right ventricle is mild to moderately dilated. Mildly reduced RV function. RVSP is 42 mmHg. ATRIA Left atrium is severely dilated. Right atrium is severely dilated. AORTIC VALVE Trileaflet AV appears partially calcified without stenosis. Thickened arotic leaflet with echogenic mass, concerning for ?vegetation on AV. Severe insufficiency. Clinical correlation recommended. MITRAL VALVE Mild mitral annular calcification. Severe regurgitation. TRICUSPID VALVE Tricuspid valve is grossly normal in structure. Moderate tricuspid regurgitation. PULMONIC VALVE The pulmonary valve is normal in structure. Moderate regurgitation. GREAT VESSELS Aortic root is mildly dilated. Ascending aorta is dilated. IVC is dilated and collapses less than 50% with inspiration. PERICARDIUM Normal pericardium. No effusion. Other Information Study Quality: Adequate Conclusion Severe LV dilitation with mild concentric hypertrophy. Severely reduced LV systolic function. LVEF is 25-30%. Right ventricle is mild to moderately dilated. Mildly reduced RV function. RVSP is 42 mmHg. Left atrium is severely dilated. Right atrium is severely dilated. Trileaflet AV appears partially calcified without stenosis. Thickened arotic leaflet with echogenic mass, concerning for ?vegetation on AV. Severe insufficiency. Clinical correlation recommended. Mild mitral annular calcification. Severe regurgitation. Tricuspid valve is grossly normal in structure. Moderate tricuspid regurgitation. The pulmonary valve is normal in structure. Moderate regurgitation. Aortic root is mildly dilated. Ascending aorta is dilated. Normal pericardium. No effusion.
[2025-01-28] MEDS: HYDROcodone/acetaminophen 10/325mg tab PO PRN (19:07)
[2025-01-29] VITALS (10 sets, daily range): BP systolic 91–119; BP diastolic 57–82; PULSE 74–99; RESP 15–21; TEMP 96.3–98.4; O2SAT 90–99
[2025-01-29 07:13] LABS: MEAN PLATELET VOLUME 8.0 FL (7.4-10.4); RED CELL DISTRIBUTION WIDTH 15.0 % (11.5-14.5)
[2025-01-29 07:25] LABS: CREATININE 1.93 MG/DL (0.60-1.10); TOTAL CARBON DIOXIDE 24.1 MMOL/L (24-32); eCRCL 52 ML/MIN; eGFR 37 ML/MIN
[2025-01-29] MEDS ORDERED: diazepam inj 5 MG/ML inj. IV PRN (08:00)
[2025-01-29 08:34] LABS: OSMOLALITY 283 MOSM/K (280-300)
--- NOTE | 2025-01-29 12:48 | CONSULTATION REPORT - RESIDENT ---
Consult Providers to CC Resident Creating Document: DEBBIEVIVIENNERADHA FRANKLIN, RES CC: ANGEL LUNDBERG MD History of Present Illness Reason for Admit\Complaint: Shortness of breaths and lower extremity swelling History of Present Illness A 49-year-old male with PMH of HTN, HFrEF presented to the ED on the 27 of January in view of worsening lower extremity swelling and shortness of breaths. Per the primary care team, patient usually takes Lasix 40 mg at home but has ran out of medications and was not able to use, since then patient has lower extremity swelling worsened. Per the patient, patient had extreme fatigue, orthopnea, worsening shortness of breaths dizziness and chest pressure over the past two weeks. All of these symptoms had become so severe that he presented to the ED. Patient also states that he has extreme fatigue which disabled him from employment, therefore bounces back to methamphetamine. Patient initially was diagnosed with heart failure with reduced ejection fraction with an ejection fraction of 25% about six months ago when he was placed on GDM T and discussions about AICD have been done. Patient wanted a 2nd opinion and declined AICD at that time. Reportedly, patient claims that his ejection fraction improved to 60% on GDM T four months after the diagnosis of HFrEF. Today, patient's echo revealed worsening ejection fraction to 25%. Initially, patient was seeing Dr. Goff but he wanted to see the on-call advanced manufacturing associate (Dr. Lundberg). Primary care team consulted cardiology team in view of acute worsening of methamphetamine induced heart failure with reduced ejection fraction. Allergies: Coded Allergies: zolpidem (Verified Allergy, Intermediate, PSYCHOTIC SYMPTOMS, 01/27/25) pork derived (porcine) (Verified Allergy, Unknown, 01/27/25) Home Medications Home Medications Active Reported Furosemide 40 Mg Tablet 1 Tab PO Q48H Farxiga (Dapagliflozin Propanediol) 5 Mg Tablet 1 Tab PO QAM Spironolactone 25 Mg Tablet 1 Tab PO DAILY Metoprolol Succinate 25 Mg Tab.sr.24h 1 Tab PO DAILY Lisinopril 5 Mg Tablet 1 Tab PO BID Diazepam 10 Mg Tablet 1 Tab PO HS Past Medical History Past Medical History HFrEF HTN Panic attacks Nam's palsy the age 12 Past Surgical History Surgical History Comment Tonsillectomy Multiple orthopedic surgeries Bilateral knee replacement Past Social History Social History Comment Smokes methamphetamine, smokes 3-4 cigarettes per day since 2007 Consumes marijuana Consumes beer every day 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 Hoffman at [facility] Constitutional: Dizziness, No fever, chills, weight gain or loss Eyes: No pain, erythema, discharge, blurring of vision ENT: No sore throat, epistaxis, tinnitus Cardiovascular: reports Shortness of breath., Chest pressure, chest discomfort, orthopnea, PND, lower extremity edema, no palpitations, syncope Respiratory: Shortness of breath, No hemoptysis Gastrointestinal: Normal appetite. No nausea, vomiting, diarrhea, constipation, hematemesis, abdominal pain, bloating, melena or fresh blood Musculoskeletal: chronmic edema. Integumentary: No change in skin, hair, nails. No swelling, bruising, abrasions Neurologic: No headache, neck pain, numbness or tingling of the extremities, weakness Psychiatric: No delusions, depression, loss of interest in normal activity or change in sleep pattern, hallucinations, suicidal ideations Endocrine: No fatigue, weakness, polydipsia, polyuria, change in appetite, heat or cold intolerance, sweating, dry skin Exam Vitals: Vital Signs Date Time Temp Pulse Resp B/P (MAP) Pulse Ox O2 Delivery O2 Flow Rate FiO2 01/29/25 11:38 16 01/29/25 08:00 99 Room Air 0.0 21 01/29/25 08:00 86 01/29/25 06:00 98.4 112/79 (90) General: General: Alert, awake, oriented, not in acute distress HEENT: PERRLA, no icterus, pallor, lymphadenopathy, carotid bruit Respiratory system: Bilateral vesicular breath sounds heard, bilateral basal Creps and crackles heard CVS: S1-S2 heard, grade 3/6 HSM present in the mitral area with radiation to the tricuspid area GI: Soft, nontender, no organomegaly, no guarding/rigidity, bowel sounds present Neuro: No focal neurological deficits present Extremities: 1+ bilateral pitting edema present Skin: Warm and dry Diagnostic Data Last Recorded Lab Results: 01/29/25 0701 01/29/25 0701 Diagnostic Data: Laboratory Tests Test 01/27/25 18:10 Prothrombin Time 12.5 SECONDS (9.0-12.0) H INR International Normalized Ratio 1.2 INR Activated Partial Thromboplast Time 25 SECONDS (22-32) Coagulation Comments Additional Plan Assessment: 49-year-old male with PMH of HFrEF, HTN presented to the ED in view of worsening shortness of breaths and bilateral lower extremity edema. Cardiology team is consulted in view of acute worsening of HFrEF secondary to methamphetamine induced cardiomyopathy. Plan: Acute worsening of HFrEF, EF: 25% Methamphetamine induced cardiomyopathy Echo: EF: 25-30%, severely reduced LV dysfunction, concentric hypertrophy of LV, RVSP: 42 mmHg, severely dilated left atrium and right atrium Chest x-ray: Cardiomegaly with mild pulmonary congestion Elevated proBNP Started on dobutamine drip at three mics per minute, advanced to five mics per minute in 1 hour if the patient is able to tolerate three mics per minute for better kidney perfusion and diuresis Titrate Lasix as required, currently discontinued a scheduled dose in view of worsening kidney function GDM T: Continue spironolactone 25 mg daily p.o., Jardiance 10 mg daily p.o., metoprolol succinate ER 25 mg p.o. daily, lisinopril 5 mg once daily 1.5 L fluid restriction Strict Is&Os Daily proBNP Prerenal ARTURO probably secondary to renal tubular stasis versus ARTURO on CKD Elevated BUN and creatinine Hoping to see improvement in kidney function after the dobutamine drip Continue to monitor BMP HTN Continue to monitor blood pressures Methamphetamine abuse disorder special services coordinator consult Code status: Full code Diet: Heart healthy DVT prophylaxis: Heparin Disposition: Advance dobutamine drip to five mics per minute of the patient is able to tolerate, continue to monitor vitals Radha Callejas MD Internal Medicine, PGY 2 Patient seen and examined by Dr. Kaz LR. Patient educated about toxic effects of methamphetamine on the heart. He says he wants to quit. Agree with IV dobutamine short term to improve cardiorenal perfusion. Optimize GDM T. Please find a primary doctor for patient once he gets discharged. Recommend social work consult Sepsis Screening Reassessment Date: Jan 29, 2025 Date of Service: Jan 29, 2025 Billing Provider: ANGEL LUNDBERG MD, SIVA, RES Jan 29, 2025 12:48 ANGEL LUNDBERG MD Jan 29, 2025 17:04
[2025-01-29] MEDS: DOBUTamine-DoBUTrex 500mg/D5W 250 ML IV SCH (13:45)
--- NOTE | 2025-01-29 14:36 | RADIOLOGY REPORT ---
INDICATION: elevated liver enzymes TECHNIQUE: Multiple real-time sonographic images of the abdomen were obtained. COMPARISON: None FINDINGS: The liver is heterogeneous in echogenicity. The liver measures 20cm. No intrahepatic biliary ductal dilatation is noted. The gallbladder wall measures 0.3 cm and is unremarkable. Gallstones are present. The common duct measures 0.4 cm and is unremarkable. No pericholecystic fluid is noted. The right kidney measures 10cm. No hydronephrosis. The pancreas is not well visualized due to obscuration from bowel gas. The visualized portions of the IVC and aorta are grossly unremarkable. IMPRESSION: Cholelithiasis. Hepatomegaly/hepatic steatosis. Hepatic cirrhosis
--- NOTE | 2025-01-29 16:50 | PROGRESS NOTE- Residence ---
Progress Note - Resident Providers to CC Resident Creating Document: ARIADNA HELM RES ~ Antibiotic Timeout Antibiotic Ordered?: No Subjective Patient was seen and examined bedside. He is comfortably sitting on the bed. He states that he slept well. He denies new overnight symptoms. Objective Vital Signs Date Time Temp Pulse Resp B/P (MAP) Pulse Ox O2 Delivery O2 Flow Rate FiO2 01/29/25 13:46 16 01/29/25 13:12 84 01/29/25 11:00 97.6 116/72 (87) 93 Room Air 01/29/25 08:00 0.0 21 Result Diagram: 01/29/25 0701 01/29/25 0701 Awake , alert, and oriented x4, in no acute distress HEENT: Atraumatic, normocephalic, EOMI, anicteric sclera ; pink conjunctiva Neck: Trachea midline. Supple, full range of motion, no JVD Cardiac: Regular rhythm, regular rate, grade 3 holosystolic murmur in mitral area Respiratory: Equal breath sounds bilaterally, no tachypnea, no wheezing ,rub, crackles. Chest wall is symmetric and without deformity. Gastrointestinal: Abdomen symmetric, non-distended, soft, non-tender, normal bowel sounds x4 quadrant, normoactive, no hepatosplenomegaly Musculoskeletal: Bilateral pitting pedal edema 1+, no cyanosis Neurological: Speech is clear, alert, and oriented x 4. No motor or sensory deficit, deep tendon reflexes normal, cerebellar intact. Cranial nerves II-XII intact, Mild drooping of left eyelid present, diminished left-sided wrinkles and unable to completely raise left eyebrow due to residual effects of Nam's palsy at age 12 Skin: Warm and dry Coagulation Studies Laboratory Tests Test 01/27/25 18:10 Prothrombin Time 12.5 SECONDS (9.0-12.0) H INR International Normalized Ratio 1.2 INR Activated Partial Thromboplast Time 25 SECONDS (22-32) Coagulation Comments Assessment Assessment 49-year-old male with history of HFrEF, meth abuse, hypertension, chronic back pain, Nam's palsy, anxiety admitted for management of acute on chronic CHF exacerbation. Plan Plan Acute on chronic systolic heart failure, LVEF of 25-30% AHA/ACC class C, NYHA III Methamphetamine abuse Patient has orthopnea and swelling of legs 1+ Blood pressure is normal Echo shows LVEF of 25-30%, RVSP 42 mmHg, mild concentric hypertrophy of LV, suspected vegetation on aortic valve,[id number] dilated RV, severely dilated RA and LA, severe mitral, tricuspid and pulmonary regurgitation Consulted cardiology, Dr. Clarke Continue GDMT - metoprolol succinate 25 mg, spironolactone 25 mg, Jardiance 10 mg Restarted lisinopril 5 mg his blood pressure is normal, as per cardiology recommendations Discontinued Lasix due to ARTURO Started dobutamine drip at 3 mcg/Kg/min, patient is tolerating hence increased to 5 mcg/kg/min, as per cardiology Positive fluid balance of 1250 mL Monitor I's and os Daily weights ARTURO on CKD stage III, most likely prerenal due to renal tubular stasis Creatinine has downtrended from 2 to 1.93 BUN is 33 BUN/Cr is normal Started dobutamine drip, currently at 5 mcg/kg/min Fena 1.6% which is indeterminate Monitor BMP Methamphetamine abuse Alcohol abuse Urine tox positive for amphetamines and cannabinoids Ethyl alcohol <10 Alcohol withdrawal protocol in place visitor services technician and substance abuse navigator consulted Elevated transaminases liver function tests are mildly elevated probably due to alcoholic hepatitis, pending hep B and C serologies 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 History of Nam's palsy Mild drooping of left eyelid present, diminished left-sided wrinkles and unable to completely raise left eyebrow due to residual effects of Nam's palsy at age 12 Code status: Full code DVT prophylaxis: Heparin Sub Q Pain management: Acetaminophen/ [place] 5 mg/10 mg p.r.n. Diet/nutrition: Heart healthy diet Prognosis: Guarded Disposition: Continue dobutamine drip, monitor heart rate, Strict I's and O's, possible discharge tomorrow Resident attestation: The patient note has been reviewed and supervised by senior residents PGY-2/ PGY-3. Patient was seen, examined and discussed with attending physician, Dr. Jamey Helm MD Internal Medicine resident, PGY-1 Date of Service: Jan 29, 2025 Billing Provider: NARA CURRY MD, PREETHI, RES Jan 29, 2025 16:50
[2025-01-30] VITALS (17 sets, daily range): BP systolic 92–116; BP diastolic 59–78; PULSE 75–87; RESP 12–25; TEMP 97.1–97.8; O2SAT 94–97
[2025-01-30 06:55] LABS: MEAN PLATELET VOLUME 8.2 FL (7.4-10.4); RED CELL DISTRIBUTION WIDTH 14.7 % (11.5-14.5)
[2025-01-30 07:10] LABS: CREATININE 1.66 MG/DL (0.60-1.10); PRO BRAIN NATRIURETIC PEPTIDE 1823 PG/ML (0-125); TOTAL CARBON DIOXIDE 24.5 MMOL/L (24-32); eCRCL 60 ML/MIN; eGFR 44 ML/MIN
[2025-01-30 09:19] LABS: HBSAG SCREEN Negative (Negative); HEP B CORE AB, IGM Negative (Negative); HEPATITIS C VIRUS ANTIBODY Non Reactive (Non Reactive)
--- NOTE | 2025-01-30 15:51 | PROGRESS NOTE- Residence ---
Progress Note - Resident Providers to CC Resident Creating Document: BALDO DEWEY, RES ~ Antibiotic Timeout Antibiotic Ordered?: No Subjective The patient was seen and examined at the bedside today. He denied any new concerns or complaints. Denied any worsening of his shortness of breaths. No acute overnight events were reported. Objective Vital Signs Date Time Temp Pulse Resp B/P (MAP) Pulse Ox O2 Delivery O2 Flow Rate FiO2 01/30/25 11:00 97.8 81 12 116/64 (81) 97 Room Air 01/29/25 20:00 0.0 21 Result Diagram: 01/30/25 0554 01/30/25 0554 General: Awake and Alert, no acute distress. HEENT: Conjunctiva pink, Sclera clear, Mucus Membranes moist. Neck: Supple without masses and tenderness. Resp: Unlabored. Lungs clear to auscultation bilaterally. Heart: Regular Rate and rhythm, normal S1 and S2 , systolic murmur heard in the 2nd intercostal areas in the right and left parasternal region -2/6. Patient also has a holosystolic murmur in the mitral area3/6 Abdomen: Soft and non tender no organomegaly Extremities: 1+ edema in bilateral lower extremity. Skin: Warm and Dry. Neurology: Cranial nerves 2-12 intact. No focal motor or sensory deficits. Coagulation Studies Laboratory Tests Test 01/27/25 18:10 Prothrombin Time 12.5 SECONDS (9.0-12.0) H INR International Normalized Ratio 1.2 INR Activated Partial Thromboplast Time 25 SECONDS (22-32) Coagulation Comments Assessment Assessment 49-year-old male with history of HFrEF, meth abuse, hypertension, chronic back pain, Nam's palsy, anxiety admitted for management of acute on chronic CHF exacerbation. Plan Plan 1. Acute exacerbation of Congestive heart failure with reduced ejection fraction Meth induced cardiomyopathy Suspected aortic valve vegetation Severe aortic insufficiency Severe mitral regurgitation Moderate regurgitation of the pulmonary and tricuspid valve The patient's echocardiography shows a left ventricular ejection fraction of 25- 30% with a severely reduced left ventricle function, concentric hypertrophy of the left ventricle, RVSP 42 mmHg, dilated left and right atrium. The echo was also significant for thickened aortic valve with a severe insufficiency and an echogenic mass with suspicion for vegetations. Follow up with blood cultures in view of the suspected aortic valve vegetation. IV Lasix to maintain euvolemia. Fluid restriction to 1.5 L per day recommended. Started the patient on GDM T with metoprolol succinate 25 mg p.o. daily, spironolactone 25 mg p.o. daily, Jardiance 10 mg p.o. daily and lisinopril 5 mg p.o. daily. Continue IV dobutamine. Wean off in the next 24 hours. Monitor vitals closely. Educated regarding the importance of staying abstinent from methamphetamine. Substance abuse navigator consultation recommended. Clother In consultation recommended. We will review the patient's echocardiography images and see if with the patient might require MARY JO for further evaluation of the suspected vegetation on the aortic valve. 2. Acute kidney injury on CKD The most likely cause of the patient's worsening renal function is renal tubular stasis. The patient also has a component of toxic kidney injury from methamphetamine use. The patient's renal function is improving on dobutamine and Lasix. Continue monitoring the patient's renal function test. 3. Methamphetamine use disorder Educated regarding the importance of staying abstinent from methamphetamine. Substance abuse navigator consultation and social science manager consultation recommended. 4. Hypertension Patient currently on dobutamine drip. Continue to monitor vitals closely and wean the patient off of dobutamine next 24 hours. CODE STATUS: Full code DVT prophylaxis: SubQ heparin GI prophylaxis: None Diet: Recommended heart healthy diet Disposition: Continue medical management. Wean the patient off dobutamine in the next 24 hours. Awaiting blood cultures. Baldo Dewey MD Internal Medicine Resident, PGY-3 Patient seen and examined by Dr. Kaz LR. Patient's echocardiogram reviewed. Aortic valve is thickened with questionable small mobile density. Patient is afebrile. Blood cultures are pending. Recommend limited repeat thoracic echo to assess aortic valve. Date of Service: Jan 30, 2025 Billing Provider: ANGEL LUNDBERG MD, SURYA PRATIK, RES Jan 30, 2025 15:51 ANGEL LUNDBERG MD Jan 30, 2025 19:15
--- NOTE | 2025-01-30 21:58 | PROGRESS NOTE- Residence ---
Progress Note - Resident Providers to CC Resident Creating Document: ARIADNA HELM RES ~ Antibiotic Timeout Antibiotic Ordered?: No Subjective The patient was seen and examined at the bedside today. He is not in acute distress. He states that his swelling in legs is improving. He denied any new concerns or complaints. Objective Vital Signs Date Time Temp Pulse Resp B/P (MAP) Pulse Ox O2 Delivery O2 Flow Rate FiO2 01/30/25 19:16 18 01/30/25 18:30 90 01/30/25 17:00 95/69 (78) 01/30/25 15:00 97.6 97 Room Air 01/29/25 20:00 0.0 21 Result Diagram: 01/30/25 0554 01/30/25 0554 Awake , alert, and oriented x4, resting comfortably in the bed, in no acute distress HEENT: Atraumatic, normocephalic, EOMI, anicteric sclera ; pink conjunctiva, moist mucous membranes Neck: Trachea midline. Supple, full range of motion, no JVD Cardiac: Regular rhythm, regular rate, grade 3 holosystolic murmur in mitral area Respiratory: Equal breath sounds bilaterally, no tachypnea, no wheezing ,rub or rales, Chest wall is symmetric and without deformity. Gastrointestinal: Abdomen symmetric, non-distended, soft, non-tender, normal bowel sounds x4 quadrant, normoactive, no hepatosplenomegaly Musculoskeletal: Bilateral pitting pedal edema 1+, no cyanosis, no osler nodes or janeway lesions Neurological: Speech is clear, alert, and oriented x 4. No motor or sensory deficit, deep tendon reflexes normal, cerebellar intact. Cranial nerves II-XII intact, Mild drooping of left eyelid present, diminished left-sided wrinkles and unable to completely raise left eyebrow due to residual effects of Nam's palsy at age 12 Skin: Warm and dry Coagulation Studies Laboratory Tests Test 01/27/25 18:10 Prothrombin Time 12.5 SECONDS (9.0-12.0) H INR International Normalized Ratio 1.2 INR Activated Partial Thromboplast Time 25 SECONDS (22-32) Coagulation Comments Assessment Assessment 49-year-old male with history of HFrEF, meth abuse, hypertension, chronic back pain, Nam's palsy, anxiety admitted for management of acute on chronic CHF exacerbation. Plan Plan Acute on chronic systolic heart failure, LVEF of 25-30% AHA/ACC class C, NYHA III Methamphetamine abuse Suspected aortic valve vegetation Blood pressure is on the soft side Echo shows LVEF of 25-30%, RVSP 42 mmHg, mild concentric hypertrophy of LV, suspected vegetation on aortic valve, [id number]-qv-zmanonmham dilated RV, severely dilated RA and LA, severe mitral, tricuspid and pulmonary regurgitation Continue GDMT - metoprolol succinate 25 mg, spironolactone 25 mg, Jardiance 10 mg, lisinopril 5 mg Restarted lasix 20 mg BID as per cardiology recommendations Continue dobutamine drip at 5 mcg/Kg/min, will plan to reduce to 3 mcg/kg/min in the a.m and will slowly wean him off, as per cardiology, monitor vitals Positive fluid balance of 805 mL Monitor I's and os Daily weights Follow up blood cultures in view of suspected aortic vegetation, patient might require MARY JO for further evaluation of the vegetation Cardiology, Dr. Clarke is following up with the patient ARTURO on CKD stage III, most likely prerenal due to renal tubular stasis Creatinine has downtrended to 1.66 BUN is 34 BUN/Cr is elevated-20.5 Continue dobutamine drip, currently at 5 mcg/kg/min Fena 1.6% which is indeterminate Monitor BMP Methamphetamine abuse Alcohol abuse Urine tox positive for amphetamines and cannabinoids Ethyl alcohol <10 Alcohol withdrawal protocol in place instructional support services director and substance abuse navigator consulted Elevated transaminases liver function tests are mildly elevated probably due to alcoholic hepatitis, pending hep B and C serologies 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 History of Anm's palsy Mild drooping of left eyelid present, diminished left-sided wrinkles and unable to completely raise left eyebrow due to residual effects of Nam's palsy at age 12 Code status: Full code DVT prophylaxis: Heparin Sub Q Pain management: Acetaminophen/ [place] 5 mg/10 mg p.r.n. Diet/nutrition: Heart healthy diet Prognosis: Guarded Disposition: Continue dobutamine drip, monitor heart rate and follow up blood cultures, Continue strict I's and O's Resident attestation: The patient note has been reviewed and supervised by senior residents PGY-2/ PGY-3. Patient was seen, examined and discussed with attending physician, Dr. Jamey Helm MD Internal Medicine resident, PGY-1 Date of Service: Jan 30, 2025 Billing Provider: NARA CURRY MD,ARIADNA, RES Jan 30, 2025 21:58
[2025-01-31] VITALS (11 sets, daily range): BP systolic 93–115; BP diastolic 58–78; PULSE 75–82; RESP 14–20; TEMP 96.7–97.8; O2SAT 95–99
[2025-01-31 06:15] LABS: MEAN PLATELET VOLUME 8.1 FL (7.4-10.4); RED CELL DISTRIBUTION WIDTH 14.9 % (11.5-14.5)
[2025-01-31 06:35] LABS: CREATININE 1.63 MG/DL (0.60-1.10); PRO BRAIN NATRIURETIC PEPTIDE 1833 PG/ML (0-125); TOTAL CARBON DIOXIDE 26.4 MMOL/L (24-32); eCRCL 61 ML/MIN; eGFR 45 ML/MIN
--- NOTE | 2025-01-31 11:43 | PROGRESS NOTE- Residence ---
Progress Note - Resident Providers to CC Resident Creating Document: RADHA CALLEJAS, GUILLERMO CC: ANGEL LUNDBERG MD ~ Antibiotic Timeout Antibiotic Ordered?: No Subjective The patient was seen and examined at the bedside today. Patient shortness of breath is much improved. Patient does not have any acute overnight events for subjective complaints. Objective Vital Signs Date Time Temp Pulse Resp B/P (MAP) Pulse Ox O2 Delivery O2 Flow Rate FiO2 01/31/25 11:00 97.2 77 18 101/64 (76) 95 Room Air 01/30/25 20:00 0.0 21 Result Diagram: 01/31/25 0532 01/31/25 0532 General: Alert, awake, oriented, not in acute distress HEENT: PERRLA, no icterus, pallor, lymphadenopathy, carotid bruit Respiratory system: Bilateral vesicular breath sounds heard, bilateral basal Creps and crackles heard CVS: S1-S2 heard, grade 3/6 HSM present in the mitral area with radiation to the tricuspid area GI: Soft, nontender, no organomegaly, no guarding/rigidity, bowel sounds present Neuro: No focal neurological deficits present Extremities: 1+ bilateral pitting edema present Skin: Warm and dry Coagulation Studies Laboratory Tests Test 01/27/25 18:10 Prothrombin Time 12.5 SECONDS (9.0-12.0) H INR International Normalized Ratio 1.2 INR Activated Partial Thromboplast Time 25 SECONDS (22-32) Coagulation Comments Assessment Assessment 49-year-old male with PMH of HFrEF, HTN presented to the ED in view of worsening shortness of breaths and bilateral lower extremity edema. Cardiology team is consulted in view of acute worsening of HFrEF secondary to methamphetamine induced cardiomyopathy. Plan Plan Acute worsening of HFrEF, EF: 25% Methamphetamine induced cardiomyopathy Echo: The initiation sound on echo not highly suspicious of vegetations, can follow up as outpatient with cultures that have been drawn in the hospital Downtrending proBNP Discontinue the dobutamine drip by afternoon per the recommendations (titrated to T-max per minute in the morning followed by discontinue including blood Discharge the patient on Lasix 40 mg b.i.d. patient can wean himself to see if he requires it. Patient needs to follow up with primary care doctor with repeat CMP after two weeks. GDM T: Continue spironolactone 25 mg daily p.o., Jardiance 10 mg daily p.o., metoprolol succinate ER 25 mg p.o. daily, lisinopril 5 mg once daily 1.5 L fluid restriction Strict Is&Os Patient declined AICD the initial admission in the past, patient does not need to be on LifeVest as the compliance is a question GDMT we will his ejection fraction the patient does complain Prerenal ARTURO probably secondary to renal tubular stasis versus ARTURO on CKD Elevated BUN and creatinine Creatinine improving Outpatient Nephrology follow up HTN Continue to monitor blood pressures Methamphetamine abuse disorder financial services representative consult Strict advice to discontinue the methamphetamine for his own benefit Code status: Full code Diet: Heart healthy DVT prophylaxis: Heparin Disposition: Patient can be discharged per the plan with the primary care team. Maximus Archuleta MT, follow up with outpatient Cardiology Nephrology and primary medical care doctor with a repeat CMP Radha Callejas MD Internal Medicine, PGY 2 Patient seen and examined by Dr. Kaz LR. We had a long discussion with patient regarding methamphetamine abstinence, making sure he follow up with the primary physician and subsequent referral to panel saw operator. Repeat echo in 2-3 months to assess the aortic valve. So far blood cultures negative. Patient was educated about signs of endocarditis if he develops any fever tiredness and fatigue he was told to return to the hospital. Date of Service: Jan 31, 2025 Billing Provider: ANGEL LUNDBERG MD, SIVA, RES Jan 31, 2025 11:43 ANGEL LUNDBERG MD Jan 31, 2025 17:42
--- NOTE | 2025-01-31 17:57 | PROGRESS NOTE- Residence ---
Progress Note - Resident Providers to CC Resident Creating Document: ARIADNA HELM RES ~ Antibiotic Timeout Antibiotic Ordered?: No Subjective The patient was seen and examined at the bedside today. He is not in distress. His shortness of breath and swelling of legs has improved. He denies new overnight symptoms. Objective Vital Signs Date Time Temp Pulse Resp B/P (MAP) Pulse Ox O2 Delivery O2 Flow Rate FiO2 01/31/25 15:00 97.6 80 14 95/64 (74) 95 Room Air 01/31/25 08:00 0.0 21 Result Diagram: 01/31/25 0532 01/31/25 0532 Awake , alert, and oriented x4, resting comfortably in the bed, in no acute distress HEENT: Atraumatic, normocephalic, EOMI, anicteric sclera ; pink conjunctiva, moist mucous membranes Neck: Trachea midline. Supple, full range of motion, no JVD Cardiac: Regular rhythm, regular rate, grade 3 holosystolic murmur in mitral area Respiratory: Equal breath sounds bilaterally, no tachypnea, no wheezing ,rub or rales, Chest wall is symmetric and without deformity. Gastrointestinal: Abdomen symmetric, non-distended, soft, non-tender, normal bowel sounds x4 quadrant, normoactive, no hepatosplenomegaly Musculoskeletal: Bilateral pitting pedal edema 1+, no cyanosis, no osler nodes or janeway lesions Neurological: Speech is clear, alert, and oriented x 4. No motor or sensory deficit, deep tendon reflexes normal, cerebellar intact. Cranial nerves II-XII intact, Mild drooping of left eyelid present, diminished left-sided wrinkles and unable to completely raise left eyebrow due to residual effects of Nam's palsy at age 12 Skin: Warm and dry Coagulation Studies Laboratory Tests Test 01/27/25 18:10 Prothrombin Time 12.5 SECONDS (9.0-12.0) H INR International Normalized Ratio 1.2 INR Activated Partial Thromboplast Time 25 SECONDS (22-32) Coagulation Comments Assessment Assessment 49-year-old male with history of HFrEF, meth abuse, hypertension, chronic back pain, Nam's palsy, anxiety admitted for management of acute on chronic CHF exacerbation. Plan Plan Acute on chronic systolic heart failure, LVEF of 25-30% AHA/ACC class C, NYHA III Methamphetamine abuse Echo- not highly suspicious of vegetation Blood pressure is on the soft side Echo showed LVEF of 25-30%, RVSP 42 mmHg, mild concentric hypertrophy of LV, suspected vegetation on aortic valve, pjmc-gj-fhhastlzws dilated RV, severely dilated RA and LA, severe mitral, tricuspid and pulmonary regurgitation Cardiology, Dr. Clarke recommends that since echo is not highly suspicious of vegetation (it could be a sclerotic valve), patient can follow up outpatient with PCP and vp mobile products with reports of blood cultures that has been drawn yesterday in the hospital Continue GDMT - metoprolol succinate 25 mg, spironolactone 25 mg, Jardiance 10 mg, lisinopril 5 mg Continue lasix 20 mg BID as per cardiology recommendations Decreased dobutamine drip from 5 to 3 mcg/kg/min in the morning, we will wean off the patient today at 9:00 p.m. Positive fluid balance of 350 ml Monitor I's and os Daily weights Follow up with blood cultures Plan to discharge tomorrow on GDMT and lasix ARTURO on CKD stage III, most likely prerenal due to renal tubular stasis Creatinine has downtrended to 1.63 BUN is 34 BUN/Cr is elevated-20.9 Decreased dobutamine drip from 5 to 3 mcg/kg/min in the morning, we will wean off the patient today at 9:00 p.m. 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 History of Nam's palsy Mild drooping of left eyelid present, diminished left-sided wrinkles and unable to completely raise left eyebrow due to residual effects of Nam's palsy at age 12 Code status: Full code DVT prophylaxis: Heparin Sub Q Pain management: Acetaminophen/ [place] 5 mg/10 mg p.r.n. Diet/nutrition: Heart healthy diet Prognosis: Guarded Disposition: Wean off dobutamine drip today, monitor heart rate and follow up blood cultures, Continue strict I's and O's, Plan to discharge tomorrow Resident attestation: The patient note has been reviewed and supervised by senior residents PGY-2/ PGY-3. Patient was seen, examined and discussed with attending physician, Dr. Jamey Helm MD Internal Medicine resident, PGY-1 Date of Service: Jan 31, 2025 Billing Provider: NARA CURRY MD,ARIADNA, RES Jan 31, 2025 17:57
[2025-02-01] VITALS: BP 97/56; PULSE 81
[2025-02-01 02:00] VITALS: BP 98/69; PULSE 77; RESP 18; TEMP 97.7; O2SAT 97
[2025-02-01 06:10] VITALS: BP 103/67; PULSE 80; RESP 16; TEMP 97; O2SAT 93
[2025-02-01 07:01] LABS: CREATININE 1.82 MG/DL (0.60-1.10); TOTAL CARBON DIOXIDE 23.9 MMOL/L (24-32); eCRCL 55 ML/MIN; eGFR 40 ML/MIN
[2025-02-01 07:03] LABS: MEAN PLATELET VOLUME 8.3 FL (7.4-10.4); RED CELL DISTRIBUTION WIDTH 14.7 % (11.5-14.5)
[2025-02-01 08:00] VITALS: RESP 16; O2SAT 93
[2025-02-01] MEDS ORDERED: MULT-25 PO (10:34)
[2025-02-01] MEDS ORDERED: SPIR25TA PO (10:34)
[2025-02-01] MEDS ORDERED: FOLI1TAB27 PO (10:34)
[2025-02-01] MEDS ORDERED: LISI2.5T14 PO (10:34)
[2025-02-01] MEDS ORDERED: thiamine tablet PO (10:34)
[2025-02-01] MEDS ORDERED: FURO-150 PO (10:34)
[2025-02-01] MEDS ORDERED: METO-395 PO (10:43)
[2025-02-01 11:00] VITALS: BP 103/73; PULSE 81; RESP 13; TEMP 98.5; O2SAT 99
--- NOTE | 2025-02-01 14:02 | PROGRESS NOTE- Residence ---
Progress Note - Resident Providers to CC Resident Creating Document: RADHA CHEUNG, GUILLERMO CC: ANGEL LUNDBERG MD ~ Antibiotic Timeout Antibiotic Ordered?: Yes Subjective The patient was seen and examined at the bedside today. He states he has got some fatigue but is improved from the day of admission. Does not have any acute overnight events or complaints Objective Vital Signs Date Time Temp Pulse Resp B/P (MAP) Pulse Ox O2 Delivery O2 Flow Rate FiO2 02/01/25 09:07 16 02/01/25 08:21 80 02/01/25 08:00 93 Room Air 0.0 21 02/01/25 06:10 97.0 103/67 (79) Result Diagram: 02/01/2518 02/01/25 0618 General: Alert, awake, oriented, not in acute distress HEENT: PERRLA, no icterus, pallor, lymphadenopathy, carotid bruit Respiratory system: Bilateral vesicular breath sounds heard, bilateral basal Creps and crackles heard CVS: S1-S2 heard, grade 3/6 HSM present in the mitral area with radiation to the tricuspid area GI: Soft, nontender, no organomegaly, no guarding/rigidity, bowel sounds present Neuro: No focal neurological deficits present Extremities: 1+ bilateral pitting edema present Skin: Warm and dry Coagulation Studies Laboratory Tests Test 01/27/25 18:10 Prothrombin Time 12.5 SECONDS (9.0-12.0) H INR International Normalized Ratio 1.2 INR Activated Partial Thromboplast Time 25 SECONDS (22-32) Coagulation Comments Assessment Assessment 49-year-old male with PMH of HFrEF, HTN presented to the ED in view of worsening shortness of breaths and bilateral lower extremity edema. Cardiology team is consulted in view of acute worsening of HFrEF secondary to methamphetamine induced cardiomyopathy. Plan Plan Acute worsening of HFrEF, EF: 25% Methamphetamine induced cardiomyopathy Discharge the patient on Lasix 40 mg b.i.d. patient can wean himself to see if he requires it. Patient needs to follow up with primary care doctor with repeat CMP after two weeks. GDM T: Continue spironolactone 25 mg daily p.o., Jardiance 10 mg daily p.o., metoprolol succinate ER 25 mg p.o. daily, lisinopril 5 mg once daily 1.5 L fluid restriction Strict Is&Os Patient declined AICD the initial admission in the past, patient does not need to be on LifeVest as the compliance is a question GDMT we will his ejection fraction the patient does complain Repeat echo in 2-3 months for the assessment of aortic valve Prerenal ARTURO probably secondary to renal tubular stasis versus ARTURO on CKD Elevated BUN and creatinine Creatinine improving Outpatient Nephrology follow up HTN Continue to monitor blood pressures Methamphetamine abuse disorder human services assistant consult Strict advice to discontinue the methamphetamine for his own benefit Code status: Full code Diet: Heart healthy DVT prophylaxis: Heparin Disposition: Patient can be discharged per the plan with the primary care team. Ensure GDMT, Lasix, follow up with outpatient Cardiology Nephrology and primary medical care doctor with a repeat CMP Radha Cheung MD Internal Medicine, PGY 2 Patient seen and examined by Dr. Kaz LR. Again patient was educated about complete abstinence from methamphetamine. Patient does not have any fever or signs of infection/endocarditis. For blood cultures negative. Review of the echo suggest it is unlikely to be vegetation. However patient was educated to follow up with PMD and follow up on final consult results from [facility]. So recommend him to get echocardiogram in three months to assess his aortic and mitral regurgitation. They continue to worsen those may need further attention. In the meantime continue to optimize GDM T. Date of Service: Feb 01, 2025 Billing Provider: ANGEL LUNDBERG MD, SIVA, RES Feb 01, 2025 14:02 ANGEL LUNDBERG MD Feb 01, 2025 18:23
--- NOTE | 2025-02-01 18:10 | DISCHARGE SUMMARY-Residence ---
Discharge Summary Providers to Resident Creating Document: TARIQ LEE, RES ~ Discharge Summary Admission Diagnosis: CHF exacerbation Hospital Course DATE OF ADMISSION: 01/27/2025 DATE OF DISCHARGE: 02/01/2025 Discharge disposition: Home Imaging: X-ray chest 01/27/2025: No acute intrathoracic abnormality. Echocardiogram 01/28/2025: Severe LV dilitation with mild concentric hypertrophy. Severely reduced LV systolic function. LVEF is 25-30%. Right ventricle is mild to moderately dilated. Mildly reduced RV function. RVSP is 42 mmHg. Left atrium is severely dilated. Right atrium is severely dilated. Trileaflet AV appears partially calcified without stenosis. Thickened arotic leaflet with echogenic mass, concerning for ?vegetation on AV. Severe insufficiency. Clinical correlation recommended. Mild mitral annular calcification. Severe regurgitation. Tricuspid valve is grossly normal in structure. Moderate tricuspid regurgitation. The pulmonary valve is normal in structure. Moderate regurgitation. Aortic root is mildly dilated. Ascending aorta is dilated. Normal pericardium. No effusion. Abdominal ultrasound 01/29/2025: Cholelithiasis. Hepatomegaly/hepatic steatosis. Hepatic cirrhosis. Discharge Diagnosis\Comment: Acute on chronic systolic heart failure, LVEF of 25-30% AHA/ACC class C, NYHA III Methamphetamine induced dilated cardiomyopathy Infective endocarditis, cannot be ruled out ARTURO on CKD stage III, most likely prerenal due to renal tubular stasis Methamphetamine abuse Alcohol abuse Elevated transaminases Dyslipipdemia Chronic back pain History of Nam's palsy Operations\Procedures: None Consultants: Dr. Clarke, television newscast director Complications: None Condition on DC: Stable New Medications: Folic Acid* (Folic Acid*) Y Tab 1 MG PO DAILY for 30 Days, #30 TAB Lisinopril (Lisinopril) 2.5 Mg Tablet 2.5 MG PO DAILY for 30 Days, #30 TAB Multivitamin with Folic Acid (Thera Tablet) 400 Mcg Tablet 1 EACH PO DAILY for 30 Days, #30 TAB Spironolactone (Aldactone) 25 Mg Tablet 12.5 MG PO DAILY for 30 Days, #15 TAB [thiamine tablet] () 100 MG TABLET 100 MG PO DAILY for 30 Days, #30 Changed Medications: Furosemide (Lasix) 20 Mg Tablet 1 TAB PO BID for 30 Days, #60 TAB 0 Refills (Changed from: Furosemide 40 Mg Tablet 1 Tab PO Q48H) Metoprolol Succinate (Metoprolol Succinate) 25 Mg Tab.sr.24h 1 TAB PO DAILY for 30 Days, #30 (Medication details modified) Do not take the medication if blood pressure is below 90/60 mm Hg Continued Medications: Dapagliflozin Propanediol (Farxiga) 5 Mg Tablet 1 TAB PO QAM Diazepam (Diazepam) 10 Mg Tablet 1 TAB PO HS Discontinued Medications: Lisinopril (Lisinopril) 5 Mg Tablet 1 TAB PO BID Spironolactone (Spironolactone) 25 Mg Tablet 1 TAB PO DAILY Discharge Summary: The patient is a 49-year-old male with past medical history of heart failure with reduced ejection fraction, hypertension, chronic pain syndrome, anxiety, Nam's palsy, presented to the ED with complaints of bilateral pedal edema and shortness of breath. He reported that he was noncompliant with his medications after which he started noticing the symptoms. On examination in the ED, the patient had 2+ bilateral pitting edema. Echocardiogram showed left ventricular ejection fraction of 25-30%. His creatinine was elevated 1.9. Field Auditor on- call, Dr. Clarke was consulted and the patient was started on dobutamine drip. His kidney function gradually got better and he achieved adequate diuresis after which he was successfully weaned off the drip. Echocardiogram also showed questionable vegetations on the aortic valve. Blood cultures were drawn and the patient was monitored. The images were reviewed by the television newscast director who thought that the vegetations are the sclerotic valve. He recommended following up with the blood cultures which are negative after two days at the time of discharge. On the day of discharge, the patient was stable and had no new complaints. He is being discharged home with instructions to follow up with his television newscast director and to establish with a tank welder. He received resources for quitting alcohol and methamphetamines. Advice at discharge: Follow up with your PCP in one week. Follow up with your television newscast director for heart failure. Take all the medications regularly as instructed. Monitor blood pressures at home and take the medications as per the parameters. We will give you a call if your blood cultures result positive. You will have to come back to the hospital in that case. Please return to the hospital if you have any fevers. Follow up with a tank welder for your worsening kidney function. Strictly stop doing methamphetamines, smoking or consuming alcohol. Please understand that continuing to do so will result in multiple complications including . In the event of worsening of symptoms, call 911 or go to the ER immediately. Examination at discharge: General: Alert, awake, oriented, not in acute distress HEENT: PERRLA, no icterus, pallor, lymphadenopathy, carotid bruit Respiratory system: Bilateral vesicular breath sounds heard, diminished breath sounds bilaterally CVS: S1-S2 heard, grade 3/6 HSM present in the mitral area with radiation to the tricuspid area GI: Soft, nontender, no organomegaly, no guarding/rigidity, bowel sounds present Neuro: No focal neurological deficits present Extremities: 1+ bilateral pitting edema present Skin: Warm and dry Vital Signs Date Time Temp Pulse Resp B/P (MAP) Pulse Ox O2 Delivery O2 Flow Rate FiO2 02/01/25 11:00 98.5 81 13 103/73 (83) 99 Room Air 02/01/25 08:00 0.0 21 Laboratory Tests Test 01/31/25 05:32 02/01/25 06:18 White Blood Count 6.3 X10'3 7.1 X10'3 Red Blood Count 3.97 X10'6 4.60 X10'6 Hemoglobin 11.6 g/dl 13.2 g/dl Hematocrit 34.7 % 40.1 % Mean Corpuscular Volume 87.3 FL 87.1 FL Mean Corpuscular Hemoglobin 29.1 PG 28.7 PG Mean Corpuscular Hemoglobin Concent 33.3 g/dL 33.0 g/dL Red Cell Distribution Width 14.9 % 14.7 % Platelet Count 213 X10'3 264 X10'3 Mean Platelet Volume 8.1 FL 8.3 FL Neutrophils (%) (Auto) 64.9 % 69.7 % Lymphocytes (%) (Auto) 17.2 % 12.9 % Monocytes (%) (Auto) 13.4 % 13.3 % Eosinophils (%) (Auto) 3.3 % 2.6 % Basophils (%) (Auto) 1.2 % 1.5 % Neutrophils # (Auto) 4.1 X10'3 5.0 X10'3 Lymphocytes # (Auto) 1.1 X10'3 0.9 X10'3 Monocytes # (Auto) 0.8 X10'3 0.9 X10'3 Eosinophils # (Auto) 0.2 X10'3 0.2 X10'3 Basophils # (Auto) 0.1 X10'3 0.1 X10'3 CBC Comment Sodium Level 135 MMOL/L 133 MMOL/L Potassium Level 4.3 MMOL/L 5.2 MMOL/L Chloride Level 100 MMOL/L 99 MMOL/L Carbon Dioxide Level 26.4 MMOL/L 23.9 MMOL/L Anion Gap 9 10 Blood Urea Nitrogen 34 MG/DL 37 MG/DL Creatinine 1.63 MG/DL 1.82 MG/DL Estimated GFR/1.73 m2 45 ML/MIN 40 ML/MIN BUN/Creatinine Ratio 20.9 20.3 Glucose Level 105 MG/DL 100 MG/DL Calcium Level 8.6 MG/DL 8.4 MG/DL Magnesium Level 2.3 MG/DL Pro-B-Type Natriuretic Peptide 1833 PG/ML Albumin 2.9 G/DL 3.2 G/DL Chemistry Comments The patient was seen and evaluated with attending physician, Dr. Concepcion on the day of discharge. Time spent on discharge 35 minutes. *Problems/Diagnosis: (1) Methamphetamine abuse (2) Acute congestive heart failure Status: Acute (3) Alcohol use disorder, moderate, dependence Total Time Spent on D/C: > 30 Minutes Counseling Services Smoking & Tobacco Cessation: > 10 Minutes Date of Service: Feb 01, 2025 Billing Provider: NARA CONCEPCION [facility] Feb 01, 2025 18:02
== END 2025-02-01 13:45 | disposition home or self-care (01) | DRG 194 ==
LOC: ER 12:31 → ED HOLD 16:18 → PCU 3S 22:23
PROVIDERS: ADMIT Family Medicine; ATTEND Family Medicine
DX: I13.0 Hypertensive heart and chronic kidney disease with heart failure and stage 1 through stage 4 chronic kidney disease, or unspecified chronic kidney disease (principal); N17.0 Acute kidney failure with tubular necrosis; I33.0 Acute and subacute infective endocarditis; I50.43 Acute on chronic combined systolic (congestive) and diastolic (congestive) heart failure; F10.10 Alcohol abuse, uncomplicated; F15.10 Other stimulant abuse, uncomplicated; N18.30 Chronic kidney disease, stage 3 unspecified; E78.5 Hyperlipidemia, unspecified; R74.01 Elevation of levels of liver transaminase levels; I42.7 Cardiomyopathy due to drug and external agent; F41.9 Anxiety disorder, unspecified; G89.29 Other chronic pain; M54.89 Other dorsalgia; Z88.8 Allergy status to other drugs, medicaments and biological substances; Z91.014 Allergy to mammalian meats
CPT/HCPCS: 36415; 71045; 76700; 80048; 80053; 80061; 80076; 80305; 80320; 81001; 82570; 83036; 83735; 83880; 83930; 83935; 84100; 84300; 84443; 84484; 85025; 85610; 85651; 85730; 86705; 86803; 87040; 87081; 87207; 87340; 87522; 93005; 93306; 96374; 99285; G0378; J1250; J1644; J1938; J3411; J3490